=== PATIENT | female | born 1970 | race Caucasian/White ===

== ENCOUNTER 2016-05-06 10:45 | Inpatient (IN) ==
[2016-05-06] MEDS ORDERED: METOCLOPRAMIDE 10 MG/2 ML VIAL IV STA (12:09)
[2016-05-06] MEDS ORDERED: diphenhydrAMINE 50 MG/1 ML VIAL IV STA (12:10)
[2016-05-06] MEDS ORDERED: SODIUM CHLORIDE 0.9% 1,000 ML IV STA (12:11)
[2016-05-06] MEDS ORDERED: ASPIRIN CHEW 81 MG TABLET PO STA (12:11)
--- NOTE | 2016-05-06 12:14 | EKG Report ---
Stationary ECG Study [facility] ER Test Date: 05/06/2016 10:59:34 AM Pat Name: CARLITOS HANDLEY Department: Room: 422 Gender: F Chief Telephone Operator: Yuridia Ochoa : 1970 Requested by: Taz Ray Order Number: [id number] Reading MD: CONSTANCE LEWIS Intervals [place] Rate: 67 P: 77 WA: 168 QRS: 74 QRSD: 80 T: 83 QT: 396 QTc: 412 Interpretive Statements SINUS RHYTHM WITH SINUS ARRHYTHMIA Electronically Signed On 05-07-16 21:54:00 REFERRAL SPECIALIST by CONSTANCE LEWIS [email or web address]
[2016-05-06 12:34] LABS: Basophils % 0.7 % (0.0-0.8); Eosinophils # 0.1 10*3/uL (0.0-0.87); Eosinophils % 2.3 % (0.00-10.9); Hematocrit 42.4 VOL% (35.7-47.0); Hemoglobin 14.2 GM/DL (12.0-16.0); Immature Granulocytes % 0.2 %; Immature Granulocytes Absolute 0.01 #; Lymphocytes % 33.4 % (21.3-54.2); Mean Corpuscular HGB Conc 33.5 GM/DL (32-36); Mean Corpuscular Hemoglobin 32 PG (27-34); Mean Corpuscular Volume 94.4 FL (87-102); Mean Platelet Volume 9.6 FL (9.6-12.0); Monocytes # 0.3 10*3/uL (0.11-0.8); Monocytes % 5.6 % (1.7-12.7); Neutrophils # 3.5 10*3/uL (1.4-7.4); Neutrophils % 57.8 % (38.7-73.9); Platelet Count 218 10*3/uL (130-400); Red Blood Count 4.49 10*6/uL (3.8-5.5); Red Cell Distribution Width 13.1 % (9.3-17.3)
[2016-05-06] MEDS ORDERED: METOCLOPRAMIDE 10 MG/2 ML VIAL ONE (12:36)
[2016-05-06] MEDS ORDERED: diphenhydrAMINE 50 MG/1 ML VIAL ONE (12:36)
[2016-05-06] MEDS ORDERED: ASPIRIN 325 MG TABLET ONE (12:36)
--- NOTE | 2016-05-06 12:40 | CT Report ---
History severe headache The ventricles are normal in size The cerebellar tonsils are at the foramen magnum. There are multiple areas of the subcortical and a mildly cortical low-density including in the cerebellum and both cerebral hemispheres. No definite hemorrhage or significant mass effect is seen. Some very minimal relative hyperdensity in the left frontal region is likely relative to the adjacent edema and the cortex. No midline shift present. Impression: 1. multiple bilateral areas of cortical and subcortical edema. Pre-and postcontrast MRI necessary to exclude underlying enhancing lesions such as from neoplasm or infectious process. Multiple areas of ischemia felt to be less likely consideration. 2. Cerebellar tonsillar ectopia PROCEDURE INTERPRETED AT [facility] DEPARTMENT OF RADIOLOGY Final Report Signed by: Dr. Mile Guillen
--- NOTE | 2016-05-06 12:46 | XRay Report ---
History is chest pain Comparison 01/10/2015 Heart normal in size Mediport catheter present. Lung markings unchanged. No new areas of confluent infiltrate or pneumothorax seen Impression: No interval change PROCEDURE INTERPRETED AT [facility] DEPARTMENT OF RADIOLOGY Final Report Signed by: Dr. Mile Guillen
[2016-05-06 12:47] LABS: D-Dimer <= 0.5 MG/L FEU; Partial Thromboplastin Time 26.9 SECS (0-40)
[2016-05-06 13:00] LABS: Albumin 3.8 G/DL (3.4-5.0); Bilirubin,Total 0.5 MG/DL (0.2-1.0); Calcium 8.8 MG/DL (8.5-10.1)
[2016-05-06 13:01] LABS: Osmolality,Calculated 288.6 MOS/KG (273-304); Potassium 4.2 MMOL/L (3.5-5.1)
[2016-05-06] MEDS ORDERED: DEXAMETHASONE INJ 10 MG in SODIUM CHLORIDE 0.9% 50 ML IV ONE (15:51)
[2016-05-06] MEDS ORDERED: ONDANSETRON 4 MG/2 ML VIAL IV PRN (17:20)
[2016-05-06] MEDS ORDERED: LACTULOSE 20 GM/30 ML UDCUP PO PRN (17:20)
[2016-05-06] MEDS ORDERED: guaiFENesin 200 MG/10 ML UDCUP PO PRN (17:20)
[2016-05-06] MEDS ORDERED: MYLANTA/LIDO VISC 2:1 300 ML BOTTLE SWISH/SPIT PRN (17:20)
[2016-05-06] MEDS ORDERED: MORPHINE 2 MG/1 ML SYRINGE IV PRN (17:20)
[2016-05-06] MEDS ORDERED: diphenhydrAMINE CAP 25 MG CAPSULE PO PRN (17:20)
[2016-05-06] MEDS ORDERED: MAGNESIUM HYDROXIDE SUSP 30 ML UDCUP PO PRN (17:20)
[2016-05-06] MEDS ORDERED: ALPRAZolam 0.25 MG TABLET PO PRN (17:20)
[2016-05-06] MEDS ORDERED: MYLANTA/LIDO VISC 2:1 300 ML BOTTLE SWISH/SWAL PRN (17:20)
[2016-05-06] MEDS ORDERED: TEMAZEPAM 7.5 MG CAPSULE PO PRN (17:20)
[2016-05-06] MEDS ORDERED: LOPERAMIDE 2 MG CAPSULE PO PRN ×2 (17:20)
[2016-05-06] MEDS: DEXAMETHASONE 4 MG TABLET PO SCH ×2 (18:08→23:29)
[2016-05-06] MEDS: ACETAMINOPHEN 325 MG TABLET PO PRN ×2 (18:13→23:59)
[2016-05-07] MEDS: DEXAMETHASONE 4 MG TABLET PO SCH ×4 (05:57→21:26)
[2016-05-07] MEDS ORDERED: ZALEPLON 5 MG CAPSULE PO PRN (09:06)
[2016-05-07] MEDS ORDERED: ALPRAZolam 0.5 MG TABLET PO PRN (09:06)
[2016-05-07] MEDS ORDERED: PROMETHAZINE 25 MG TABLET PO PRN (09:06)
--- NOTE | 2016-05-07 09:13 | Oncology History&Physical ---
Assessment and Plan (1) Brain metastases Status: Acute Assessment and plan: MRI brain today. Continue with Decadron. We will likely initiate radiation on Monday. Current Visit: Yes (2) Breast cancer Status: Acute Current Visit: No (3) Severe headache Status: Acute Current Visit: Yes History of Present Illness History of present illness: Ms. Duran is a 45 year old female with a history of metastatic HER-2 positive breast cancer who is been on doublet HER-2 blockade for over a year now with a very good response to treatment and no definitive evidence of disease. She presented to the emergency room yesterday complaining of severe headache much different than her previous history of migraines. She describes a headache as more of a pressure particularly when she leans forward. CT head in the ER yesterday showed diffuse areas of edema in both cerebral hemispheres and the cerebellum. She was admitted for steroids and further evaluation with MRI. She most likely has new brain metastases. On exam today she has no new complaints other the headaches. She seems remaining good spirits even with her new issue. We briefly discussed my plan for this weekend which included MRI on steroids. I deferred future treatment plans to her primary oncologist, Dr. Meyer , when he returns on Monday. Home Medications Medication Instructions Recorded Confirmed Type ALPRAZolam [Xanax] 1 - 2 tablet PO BEDTIME PRN 12/19/14 05/06/16 History Duloxetine HCl [Cymbalta] 60 mg PO BEDTIME 12/19/14 05/06/16 History Promethazine Tab [Phenergan Tab] 25 mg PO Q4H PRN 12/19/14 05/06/16 History Zolpidem Tartrate 10 mg PO BEDTIME PRN 05/06/16 05/06/16 History Allergies Allergy/AdvReac Type Severity Reaction Status Date / Time No Known Allergies Allergy Verified 05/06/16 10:56 Medical,Surgical,& Family Hx - Medical History Neurology: History of: Migraine Genitourinary: History of: Kidney Stones Hematology: No history of: Blood Transfusion Reaction Reproductive: History of: Breast Cancer (left) Other: History of: Cancer - Surgical History Thoracic Surgeries: Surgical HX of;: Lithotripsy (1999) Patient denies;: Organ Transplant, Lobectomy Neurologic Surgeries: Patient denies: Neurologic Surgery Abdominal Surgeries: Patient denies: Abdominal Surgery Reproductive Surgeries: Surgical HX of;: Section (1994, 2008) - Family History Family History: Reports;: Family Hypertension (father) - Social History Smoking Status: Former smoker Frequency of Alcohol Use: None Type of Drug Use: None 12 point system: reviewed and no additional remarkable complaints except as stated - Constitutional Constitutional: Absent: fatigue, weight loss - EENT Nose, mouth and throat: Absent: dizziness - Cardiovascular Cardiovascular ROS IM: Absent: chest pain - Neurological Neurological ROS: as per HPI, headache(s) - Psychiatric Psychiatric General: Present: anxiety Exam - Constitutional Vitals: Period Temp Pulse Resp BP Sys/Frausto Pulse Ox Last 24 Hr 96.5 F-97.6 F 63-79 16-20 129-138/60-83 95-98 General appearance: normal weight, no acute distress - Head Head Exam: Present: normocephalic, atraumatic - Eye Eye Exam: Present: EOMI Pupils: Present: PERRL - ENT ENT exam: Present: normal exam, normal oropharynx - Neck Neck exam: Absent: lymphadenopathy, thyromegaly - Respiratory Respiratory exam: Present: CTAB. Absent: wheezes - Cardiovascular Cardiovascular exam: Present: RRR. Absent: JVD, systolic murmur - GI/Abdominal GI/Abdominal exam: Present: soft. Absent: ascites, distended, firm, mass - Neurological Exam Neurological exam: Present: alert, oriented X3, normal gait, CN II-XII intact. Absent: altered, motor sensory deficit - Psychiatric Psychiatric exam: Present: normal affect, normal mood - Skin Skin exam: Present: warm, dry Results - Labs CBC & BMP: 05/06/16 12:24 05/06/16 12:24 Lab Results: I have reviewed the past 24 hour labs - Diagnostic Findings Procedure: CT: image reviewed by me, report reviewed by me, MRI: pending Quality Measures - Stroke Symptom Onset Unknown: No
[2016-05-07] MEDS ORDERED: DULoxetine 30 MG CAPSULE PO ONE (10:29)
--- NOTE | 2016-05-07 12:05 | Magnetic Resonance Report ---
MR head/brain w and wo con Indication: Breast cancer. New brain metastases. Edema. MRI BRAIN WITH AND WITHOUT CONTRAST Technique: Multiplanar MR images of the brain were obtained before and after the IV administration of Dotarem 17 cc.. Comparison: CT brain obtained yesterday Findings: Number shifted diffusion. There are numerous metastatic lesions distributed throughout the brain, somewhat more concentrated in the cerebellar hemispheres and posterior circulation of the occipital regions. The largest lesions within the posterior left cerebellar hemisphere measuring 18 x 13 mm in size. Additional scattered lesions involve the subcortical white matter of the left frontal and parietal lobes, right parietal region, both temporal lobes, and all have some degree of associated brain edema adjacent to them. At this time, there is no midline shift present, and there is no obstructive hydrocephalus shown. However, several cerebellar and a small right pontine lesion are present, which have mild local mass effect. The patency of the fourth ventricle is at risk. No abnormal blood products are shown. No midline shift is evident. Sinuses are clear. Orbits are symmetric. Internal auditory canals are within normal limits. Impression: Innumerable and widespread metastatic disease, largest lesion posterior left cerebral hemisphere 18 x 13 mm in size. No midline shift, and no obstructive hydrocephalus at this time but the fourth ventricle is thought to be at risk due to adjacent metastatic lesions with mild associated edema. PROCEDURE INTERPRETED AT [facility] DEPARTMENT OF RADIOLOGY Final Report Signed by: Fredy Carlisle M.D.
[2016-05-07] MEDS: DULoxetine 30 MG CAPSULE PO SCH (21:25)
[2016-05-07] MEDS: ALPRAZolam 0.5 MG TABLET PO PRN (21:25)
[2016-05-08] MEDS: ALUMINUM/MAGNES/SIMETH MAX STR 30 ML UDCUP PO PRN ×3 (05:20→21:20)
[2016-05-08] MEDS: ACETAMINOPHEN 325 MG TABLET PO PRN (08:25)
[2016-05-08] MEDS: DEXAMETHASONE 4 MG TABLET PO SCH ×4 (08:27→21:20)
--- NOTE | 2016-05-08 09:21 | Oncology Progress Note ---
Assessment and Plan (1) Breast cancer Status: Acute Current Visit: No (2) Severe headache Status: Acute Current Visit: Yes (3) Brain metastases Status: Acute Current Visit: Yes Oncology Subjective PN Interval history: Ms. Duran is a 45-year-old white female with newly diagnosed brain metastases from her previously known HER-2 positive breast cancer. MRI done yesterday confirmed numerous intracranial tumors that were more proportionately located in her cerebellum and occipital lobes. She states today her headache is much improved now that she's been on steroids for over 24 hours. Her family was present today we had a lengthy conversation about radiotherapy for these tumors. I told her that it is up to Dr. Meyer if he will want to change her systemic therapy but he'll most likely want to at least do a repeat staging CT scan or PET scan before he makes a decision such as that. I did show the MRI to her and her family on the computer screen. I explained to her that she is well enough to actually go home if she wanted to but she would like to remain in the hospital for one more day to talk to Dr. Meyer tomorrow and a go ahead and see radiation oncology. We will continue Decadron while she is here. I encourage her to ambulate up and down the gayle and to try to sit in the chair for most of the day. Exam - Constitutional Vitals: Period Temp Pulse Resp BP Sys/Frausto Pulse Ox Last 24 Hr 97 F-98.7 F 67-87 16-20 124-148/58-82 93-99 General appearance: normal weight, no acute distress - Head Head Exam: Present: normocephalic, atraumatic - Eye Eye Exam: Present: EOMI Pupils: Present: PERRL - ENT ENT exam: Present: normal exam, normal oropharynx - Neck Neck exam: Absent: lymphadenopathy, thyromegaly - Respiratory Respiratory exam: Present: CTAB. Absent: wheezes - Cardiovascular Cardiovascular exam: Present: RRR. Absent: irregular rhythm - Neurological Exam Neurological exam: Present: alert, oriented X3 - Psychiatric Psychiatric exam: Present: normal affect, normal mood Results - Labs CBC & BMP: 05/06/16 12:24 05/06/16 12:24 Lab Results: I have reviewed the past 24 hour labs - Diagnostic Findings Procedure: MRI: report reviewed by me, image reviewed by me Quality Measures - Stroke Symptom Onset Unknown: No
[2016-05-08] MEDS: DULoxetine 30 MG CAPSULE PO SCH (21:20)
[2016-05-08] MEDS: ALPRAZolam 0.5 MG TABLET PO PRN (21:20)
[2016-05-09] MEDS: ALUMINUM/MAGNES/SIMETH MAX STR 30 ML UDCUP PO PRN (04:43)
[2016-05-09] MEDS ORDERED: INFLUENZA VIRUS VACCINE 0.5 ML SYRINGE IM ONE (08:03)
[2016-05-09] MEDS: DEXAMETHASONE 4 MG TABLET PO SCH (08:48)
--- NOTE | 2016-05-09 09:28 | Discharge Summary ---
Hospital Course - Hospital Course Hospital Course: Patient with stage IV HER-2 positive breast cancer with previous treatment of pulmonary metastasis who is responded well. She presented with abrupt headache. Her MRI shows multiple lesions with some degree of edema present. She is scheduled to see radiotherapy today in initial consultation. She is on oral steroids and is a focal from a neurologic standpoint. She has mild elevation in her mood and affect but has no motor dysfunction at this time. Her cognitive function is unremarkable. Case was reviewed at bedside with the patient, her father, and her sister. I have recommended no driving for this week. She will take the week off from work. She is scheduled to see me back in approximately [address] of the chest and discussion for continued Herceptin. She had a treatment. She will resume her home medications of Cymbalta and Xanax as needed. Prescription is supplied for Decadron 4 mg p.o. 3 times daily #90 with 2 refills Discharge Plan - Discharge Medications New ALPRAZolam [Xanax] 1 mg PO BEDTIME PRN #0 tablet PRN Reason: Anxiety Dexamethasone Tab [Decadron Tab] 4 mg PO TID #90 tablet Continue ALPRAZolam [Xanax] 1 - 2 tablet PO BEDTIME PRN PRN Reason: Anxiety Promethazine Tab [Phenergan Tab] 25 mg PO Q4H PRN PRN Reason: Nausea Duloxetine HCl [Cymbalta] 60 mg PO BEDTIME Zolpidem Tartrate 10 mg PO BEDTIME PRN PRN Reason: Insomnia - Follow Up or Referral - Forms/Instructions Exam - Constitutional Vitals: Period Temp Pulse Resp BP Sys/Frausto Pulse Ox Last 24 Hr 96.9 F-97.7 F 70-82 16-22 115-140/58-74 95-97 DS: Provider Date of admission: 05/06/16 15:52 Primary care physician: . No PCP Attending physician on admission: Fredy Meyer MD Consults: 05/06/16 17:26 Consult to Pharmacy [CONS] Routine Reason for Pharmacy Consult: Adjust Meds Renal Funct 05/06/16 17:41 Consult to Pastoral Services [CONS] Routine Comment: Pastoral Screen: Request Multigrapher Visit Pastoral Screen Source of Request: Patient 05/08/16 09:32 Consult to Physician [CONS] Routine Comment: Consulting Provider: Wilfrid Ford Consulting Provider Notified: Yes When should Consulting Provider be notified: Now Consult to Specialist Group: Radiation Oncology When should Consulting Provider be notified: Now Person Notified: TIFFANI Date Notified: 05/09/16 Time Notified: 08:46 Discharging clinician: Fredy Meyer MD
[2016-05-09 12:32] VITALS: BP 121/57
--- NOTE | 2016-05-12 13:24 | Physician Query Form ---
CLICK EDIT DOCUMENT TO SELECT QUERY ANSWER --> OK --> SIGN Delphine Story RN Clinical Bookmaker'S Clerk W) [phone] (f) [phone] [email or web address] PROVIDERS: Make your selection(s) from the choices in EACH section by typing an "x" and enter comments in the comment section. Please use your independent medical judgment in providing your response. This request does not imply that any particular answer is desired or expected. CLINICAL INDICATORS: (Providers should not edit this section) Based on documentation of "stage IV HER-2 positive breast cancer with previous treatment of pulmonary metastasis who is responded well." Based on the above, could you clarify the appropriate diagnosis, if significant , that supports the above abnormalities and additional evaluation, monitoring, and/or treatment rendered: (x ) Being Treated for Pulmonary Metastasis ( ) NOT Being Treated for Pulmonary Metastasis ( ) Other, please specify: ( ) Clinically unable to determine COMMENTS: Use of terms such as suspected, likely, or probable (associated with a specific diagnosis that is being evaluated, monitored, or treated as if it exists) are acceptable and can be restated in the discharge summary if not ruled out. MTDD
--- NOTE | 2016-05-17 09:55 | Emergency Department Note ---
Logan Nunes Brittany, am scribing for, and in the presence of, Taz Ray Jr., MD 12:12. Flor Nunes Marvin Jr., MD, personally performed the services described in this documentation, ascribed by Danni Ford in my presence, and it is both accurate and complete [id number] . Arrival - Arrival Chief Complaint: Chest Pain Stated Complaint: migraine,chest pain ED Nursing Triage Note: C/O TAKING CHEMO LAST EVENING FOR BREAST CANCER, STATES WOKE UP THIS AM WITH HEADACHE, + NAUSEA., DENIES HAVING DIARRHEA., ALSO C/O HAVING CHEST PAIN , STATES HAVING PRESSURE/ TIGHTNESS.,STATES THE PAIN IS RADIATING TO THE BACK ,EKG OBTAINED AT TIME OF TRIAGE Mode of Arrival: Ambulatory Limitations: No Limitations Source: Patient, RN Notes Reviewed - History of Present Illness HPI Narrative: Patient is a 45 y/o white female presenting to the ED with c/o chest pain with an onset of last night. Patient describes chest pain as a mild pressure radiating into her back, worse with deep breaths and rates pain a 4/10. Patient believes current chest pain to most likely be a muscular pain, and states "everything just scares me now." Patient reports that she has also been having a migraine headache for about a week now. Patient states that she has a history of migraines and usually wakes up with them, but this morning at around 0200 she awakened out of her sleep by a migraine which she deems unusual for her. Patient states that this migraine is worse than her normal migraines. She reports that upon vomiting migraines are usually relieved, but states that after vomiting with current migraine, pain persisted. Patient notes that migraine is worsened with any movement, especially movement of the eyes. Patient reports that she has Breast CA, noting last chemotherapy treatment was yesterday. Patient notes that she currently takes Symbalta everyday. Patient denies use of tobacco, alcohol, or recreational drugs. Patient has no other complaint/pain in the ED. Allergies/Adverse Reactions: Allergies Allergy/AdvReac Type Severity Reaction Status Date / Time No Known Allergies Allergy Verified 05/06/16 10:56 Home Medications: Home Medications Medication Instructions Recorded Confirmed Type ALPRAZolam [Xanax] 1 - 2 tablet PO BEDTIME PRN 12/19/14 05/06/16 History Duloxetine HCl [Cymbalta] 60 mg PO BEDTIME 12/19/14 05/06/16 History Promethazine Tab [Phenergan Tab] 25 mg PO Q4H PRN 12/19/14 05/06/16 History Zolpidem Tartrate 10 mg PO BEDTIME PRN 05/06/16 05/06/16 History Review of System - Review of System 12 point system: reviewed and no additional remarkable complaints except as stated - Review of System Cardiovascular: Present: chest pain Gastrointestinal: Present: nausea, vomiting Neurological: Present: headache Medical,Surgical,& Family Hx - Medical History Genitourinary: History of: Kidney Stones Hematology: No history of: Blood Transfusion Reaction Reproductive: History of: Breast Cancer (left) Other: History of: Cancer - Surgical History Thoracic Surgeries: Surgical HX of;: Lithotripsy (1999) Patient denies;: Organ Transplant, Lobectomy Neurologic Surgeries: Patient denies: Neurologic Surgery Abdominal Surgeries: Patient denies: Abdominal Surgery Reproductive Surgeries: Surgical HX of;: Section (1994, 2008) - Family History Family History: Reports;: Family Hypertension (father) - Social History Smoking Status: Light tobacco smoker Frequency of Alcohol Use: None Type of Drug Use: None Exam Physical Examination: General: Well-developed well-nourished, no apparent distress. Head: Normocephalic, atraumatic. Eyes: PERRLA, EOMI. Nose: No obvious acute deformities or discharge. Mouth: No obvious acute injury. Neck: Full range of motion without obvious pain. No midline tender to palpation. Lymphatic: no significant lymphadenopathy noted. Lungs: Clear to auscultation bilaterally, normal and equal air movement bilaterally, no obvious rales or wheezing. Chest wall: Left upper chest wall palpation reproduces her pain Heart: regular rate and rhythm, no obvious mummers. Abdomen: Soft nontender, nondistended, normal active bowel sounds. Skin: No obivous acute lesions noted Musculoskeletal: No gross deformities. Neurological: No focal findings, cranial nerves II through XII grossly normal. Psychiatric: Anxious : Deferred Vital Signs: Vital Signs Temperature 98.2 F 05/06/16 11:15 Pulse Rate 73 05/06/16 11:15 Respiratory Rate 16 05/06/16 11:15 Blood Pressure 166/66 05/06/16 11:15 O2 Sat by Pulse Oximetry 100 05/06/16 11:15 Course Course Narrative: Differential diagnoses for chest pain: Anxiety, chest wall pain, ACS, PE, differential diagnosis for headache includes severe migraine, intracranial hemorrhage, - Reevaluation(s) Reevaluation #1: I discussed with Dr. Martínez. I read him the CT report and he said to admit this patient and give her 10 mg of dexamethasone IV. Then 4 mg of dexamethasone p.o. every 6 hours he will follow-up on her and order other appropriate testing. Time: 15:49 Results - Labs CBC & BMP: 05/06/16 12:24 05/06/16 12:24 Lab Results: I have reviewed the patients labs Labs: Laboratory Tests 05/06/16 12:24 WBC 6.0 RBC 4.49 Hgb 14.2 Hct 42.4 MCV 94.4 MCH 32 MCHC 33.5 RDW 13.1 Plt Count 218 MPV 9.6 Neut % (Auto) 57.8 Lymph % (Auto) 33.4 [place] % (Auto) 5.6 Eos % (Auto) 2.3 Baso % (Auto) 0.7 Neut # (Auto) 3.5 Lymph # (Auto) 2.0 [place] # (Auto) 0.3 Eos # (Auto) 0.1 Baso # (Auto) 0.0 Immature Gran % 0.2 Nucleated RBC % 0.0 Immature Gran # 0.01 Nucleated RBCs # 0.00 Laboratory Tests 05/06/16 12:24 INR 1.0 PT Patient/Control Mix 10.0 D-Dimer, Quantitative <= 0.5 Circ Anticoag PTT 26.9 Laboratory Tests 05/06/16 12:24 Sodium 146 H Potassium 4.2 Chloride 111 H Carbon Dioxide 26 Anion Gap 13.2 BUN 10 Creatinine 0.90 GFR Calculation 86 BUN/Creatinine Ratio 11.00 Glucose 103 Calculated Osmolality 288.6 Calcium 8.8 Total Bilirubin 0.50 AST 16 ALT 20 Alkaline Phosphatase 138 H Total Protein 7.0 Albumin 3.8 Globulin 3.2 Albumin/Globulin Ratio 1.1 Laboratory Tests 05/06/16 12:24 Troponin I < 0.015 - Diagnostic Findings Procedure: Chest x-ray: report reviewed by me, image reviewed by me (No interval change. I personally reviewed this chest x-ray and the CT), CT: report reviewed by me, image reviewed by me (head/brain wo contrast: 1. Multiple bilateral areas of cortical and subcortical edema. Pre-and post contrast MRI necessary to exclude underlying enhancing lesions such as from neoplasm or infectious process. Multiple areas of ischemia felt to be less likely consideration; 2. Cerebellar tonsillar ectopia.) Disposition Clinical Impression: Severe headache, Probable brain metastasis, Increase alkaline phosphatase Case discussed with: patient, patient's family Disposition: Still a Patient Condition: Stable Time of Disposition: 15:51
== END 2016-05-09 12:29 | disposition home or self-care (01) | DRG 54 ==
LOC: N.ED 10:45 → N.EDINP 15:52 → N.4E 16:52
PROVIDERS: ADMIT Specialist; ATTEND Specialist

== ENCOUNTER 2016-05-26 11:22 | Inpatient (IN) ==
[2016-05-26] MEDS ORDERED: SODIUM CHLORIDE 0.9% 1,000 ML IV SCH (13:00)
[2016-05-26] MEDS ORDERED: PROMETHAZINE INJ 25 MG in SODIUM CHLORIDE 0.9% 50 ML IV PRN ×2 (13:00→14:24)
[2016-05-26] MEDS ORDERED: MORPHINE 2 MG/1 ML SYRINGE IV PRN (13:00)
[2016-05-26] MEDS ORDERED: chlorproMAZINE INJ 25 MG in SODIUM CHLORIDE 0.9% 100 ML IV PRN (14:24)
[2016-05-26] MEDS ORDERED: chlorproMAZINE 25 MG TABLET PO PRN (14:24)
[2016-05-26] MEDS ORDERED: LACTULOSE 20 GM/30 ML UDCUP PO PRN (14:24)
[2016-05-26] MEDS ORDERED: TEMAZEPAM 7.5 MG CAPSULE PO PRN (14:24)
[2016-05-26] MEDS ORDERED: guaiFENesin 200 MG/10 ML UDCUP PO PRN (14:24)
[2016-05-26] MEDS ORDERED: traMADol 50 MG TABLET PO PRN (14:24)
[2016-05-26] MEDS ORDERED: MYLANTA/LIDO VISC 2:1 300 ML BOTTLE SWISH/SPIT PRN (14:24)
[2016-05-26] MEDS ORDERED: ALUMINUM/MAGNES/SIMETH MAX STR 30 ML UDCUP PO PRN (14:24)
[2016-05-26] MEDS ORDERED: chlorproMAZINE INJ 50 MG in SODIUM CHLORIDE 0.9% 100 ML IV PRN (14:24)
[2016-05-26] MEDS ORDERED: BENZTROPINE 2 MG/2 ML AMP IV PRN (14:24)
[2016-05-26] MEDS ORDERED: MYLANTA/LIDO VISC 2:1 300 ML BOTTLE SWISH/SWAL PRN (14:24)
[2016-05-26] MEDS ORDERED: ACETAMINOPHEN 325 MG TABLET PO PRN (14:24)
[2016-05-26] MEDS ORDERED: ONDANSETRON 4 MG/2 ML VIAL IV PRN (14:24)
[2016-05-26] MEDS ORDERED: MAGNESIUM HYDROXIDE SUSP 30 ML UDCUP PO PRN (14:24)
[2016-05-26] MEDS ORDERED: diphenhydrAMINE CAP 25 MG CAPSULE PO PRN (14:24)
[2016-05-26] MEDS ORDERED: LOPERAMIDE 2 MG CAPSULE PO PRN ×2 (14:24)
[2016-05-26] MEDS ORDERED: ALPRAZolam 0.25 MG TABLET PO PRN (14:24)
[2016-05-26 14:31] LABS: Apearance,Urine Slightly Hazy (Clear); Bilirubin,Urine Negative (Negative); Blood, Urine Moderate mg/dL (Negative); Glucose,Urine (UA) Negative (Negative); Ketones,Urine Negative (Negative); Mucus,Urine Occasional /LPF (Occasional); Nitrite,Urine Negative (Negative); Protein,Urine 30 MG/DL; RBC,Urine 4 /HPF (0-4); Squamous Epithelial Cell,Urine Occasional /HPF (0-10); Urine Color Yellow (Yellow); Urine Specific Gravity 1.023 (1.001-1.035); Urine Urobilinogen < 2.0 EU/DL (0.2-1.0); WBC,Urine 4 /HPF (0-6)
[2016-05-26] MEDS: FLUCONAZOLE 200 MG TABLET PO SCH (14:40)
[2016-05-26] MEDS: DEXAMETHASONE 10 MG/1 ML VIAL IV SCH (14:40)
[2016-05-26] MEDS: cefTRIAXone 1,000 MG in SODIUM CHLORIDE 0.9% 100 ML IV SCH (14:41)
--- NOTE | 2016-05-26 14:51 | XRay Report ---
Portable chest Date: 05/26/2016 Clinical history: Breast cancer, febrile neutropenia Comparison: 05/06/2016 Technique: Portable AP sitting chest Findings: The heart is normal in size with stable right subclavian venous access catheter. The lungs are overexpanded with chronic scarring. Very minimal atelectasis at the left lung base. Postoperative findings in the left axilla. Stable mediastinum and osseous structures. Impression: The lungs are more overexpanded with very minimal atelectasis at the left lung base. Underlying chronic scarring with no significant infiltration noted. PROCEDURE INTERPRETED AT [facility] DEPARTMENT OF RADIOLOGY Final Report Signed by: Dr. Karen Riley
[2016-05-26] MEDS: SODIUM CHLORIDE 0.9% 1,000 ML IV SCH (18:34)
[2016-05-26] MEDS ORDERED: PROMETHAZINE 25 MG TABLET PO PRN (19:11)
[2016-05-26] MEDS ORDERED: ALPRAZolam 0.5 MG TABLET PO PRN (19:12)
[2016-05-26] MEDS: ALPRAZolam 0.5 MG TABLET PO SCH (20:44)
[2016-05-27] MEDS: DEXAMETHASONE 10 MG/1 ML VIAL IV SCH ×2 (00:41→14:15)
[2016-05-27] MEDS: SODIUM CHLORIDE 0.9% 1,000 ML IV SCH (06:31)
[2016-05-27] MEDS: FLUCONAZOLE 200 MG TABLET PO SCH (08:13)
[2016-05-27] MEDS: ALPRAZolam 0.5 MG TABLET PO SCH (08:14)
[2016-05-27] MEDS ORDERED: DULoxetine 30 MG CAPSULE PO SCH (09:00)
--- NOTE | 2016-05-27 09:46 | Oncology History&Physical ---
Assessment and Plan (1) Breast cancer Status: Acute Assessment and plan: Continue antibiotics today and follow-up blood cultures. Continue IV steroids. Continue with whole brain radiation. If she remains afebrile during today and continues to tolerate oral intake then we would plan for discharge home of the weekend with oncology follow-up on Monday Current Visit: No History of Present Illness Chief complaint: Nausea vomiting History of present illness: Ms. Duran is a 46 year old female With multiple brain metastasis diagnosed 2-3 weeks ago with ongoing treatment for stage IV HER-2 positive breast cancer. The patient continues to have good systemic control of her disease outside of the brain metastasis with extended dosing of Herceptin and Tradjenta. She was felt to have pulmonary metastasis at the time of original presentation. She was seen in the office yesterday with 24 hours of nausea vomiting. She was unable to tolerate solid or liquid intake. She was having difficulty maintaining her steroid intake during this time as well. She did receive whole brain radiotherapy yesterday as well as plans for today. The patient also had fever up to 101 yesterday with body aches. Her flu test is negative. Her urinalysis is unremarkable. Blood cultures are pending and she was started empirically on Rocephin. She does not have any signs of meningismus. Home Medications Medication Instructions Recorded Confirmed Type ALPRAZolam [Xanax] 1 - 2 tablet PO TID 12/19/14 05/26/16 History Duloxetine HCl [Cymbalta] 60 mg PO BEDTIME 12/19/14 05/26/16 History Promethazine Tab [Phenergan Tab] 25 mg PO Q4H PRN 12/19/14 05/26/16 History Zolpidem Tartrate 10 mg PO BEDTIME PRN 05/06/16 05/26/16 History ALPRAZolam [Xanax] 1 mg PO BEDTIME PRN #0 tablet 05/09/16 05/26/16 Rx Dexamethasone Tab [Decadron Tab] 4 mg PO TID #90 tablet 05/09/16 05/26/16 Rx Allergies Allergy/AdvReac Type Severity Reaction Status Date / Time No Known Allergies Allergy Verified 05/06/16 10:56 Medical,Surgical,& Family Hx - Medical History Neurology: History of: Migraine Genitourinary: History of: Kidney Stones Hematology: No history of: Blood Transfusion Reaction Reproductive: History of: Breast Cancer (left) Other: History of: Cancer - Surgical History Thoracic Surgeries: Surgical HX of;: Lithotripsy (1999) Patient denies;: Organ Transplant, Lobectomy Neurologic Surgeries: Patient denies: Neurologic Surgery Abdominal Surgeries: Patient denies: Abdominal Surgery Reproductive Surgeries: Surgical HX of;: Section (1994, 2008) - Family History Family History: Reports;: Family Hypertension (father) - Social History Smoking Status: Former smoker Frequency of Alcohol Use: None Type of Drug Use: None - Constitutional Constitutional: Present: fatigue, fever(s), malaise - EENT Eye: Absent: diplopia, loss of vision Ears: Absent: ear discharge, ear pain Nose, mouth and throat: Absent: neck mass, neck pain, odynophagia, sore throat - Cardiovascular Cardiovascular ROS IM: Absent: edema, orthopnea - Respiratory Respiratory: Absent: dyspnea, hemoptysis Exam - Constitutional Vitals: Period Temp Pulse Resp BP Sys/Frausto Pulse Ox Last 24 Hr 96.2 F-99.8 F 65-75 18-20 109-132/56-77 97-99 General appearance: normal weight - Head Head Exam: Present: normocephalic, atraumatic - Eye Eye Exam: Present: EOMI, conjunctival injection (Mild). Absent: periorbital swelling, scleral icterus - ENT ENT exam: Present: normal external ear exam - Neck Neck exam: Present: normal inspection. Absent: lymphadenopathy - Respiratory Respiratory exam: Present: CTAB. Absent: accessory muscle use, chest wall tenderness - Cardiovascular Cardiovascular exam: Present: RRR. Absent: irregular rhythm - GI/Abdominal GI/Abdominal exam: Absent: ascites, distended, firm - Neurological Exam Neurological exam: Present: alert, oriented X3, CN II-XII intact. Absent: altered, motor sensory deficit - Psychiatric Psychiatric exam: Absent: anxious, depressed
[2016-05-27 12:25] VITALS: BP 112/57
[2016-05-27] MEDS: cefTRIAXone 1,000 MG in SODIUM CHLORIDE 0.9% 100 ML IV SCH (14:15)
[2016-05-27] MEDS ORDERED: HEPARIN LOCK FLUSH 500 UNIT/5 ML SYRINGE IV ONE (15:04)
--- NOTE | 2016-05-30 08:34 | Discharge Summary ---
Hospital Course - Hospital Course Hospital Course: Patient with HER-2 positive breast cancer admitted with brain metastasis and nausea vomiting. The patient responded well to 24 hours of IV steroids and IV hydration. She was moving all extremities and was scheduled to continue with radiotherapy. Labs were reviewed and case was discussed with patient and her father. Stable for discharge home as she is now tolerating oral intake and solid food. Follow-up is arranged for 72 hours post discharge on May 30 Diagnosis - Discharge Diagnosis (1) Breast cancer Status: Acute Specialty Discharge - Follow Up or Referrals Follow up with: Fredy Meyer MD [Physician] - (Dr. Meyer will see you Monday.) Discharge Plan - Discharge Data Disposition: Disch To Home/Self Care - Discharge Medications No Action ALPRAZolam [Xanax] 1 - 2 tablet PO TID Promethazine Tab [Phenergan Tab] 25 mg PO Q4H PRN PRN Reason: Nausea Duloxetine HCl [Cymbalta] 60 mg PO BEDTIME ALPRAZolam [Xanax] 1 mg PO BEDTIME PRN #0 tablet PRN Reason: Anxiety Dexamethasone Tab [Decadron Tab] 4 mg PO TID #90 tablet Ciprofloxacin Tab [Cipro Tab] 500 mg PO BID Zolpidem Tartrate 10 mg PO BEDTIME PRN PRN Reason: Insomnia - Follow Up or Referral Follow Up: Fredy Meyer MD [Physician] - (Dr. Meyer will see you Monday.) - Forms/Instructions Discharge Results Procedures and tests throughout hospitalization: Pending Orders 05/26/16 14:19 Blood Culture Stat Blood Culture Stat Labs on day of discharge: Preliminary micro results at discharge 05/26/16 14:19 Blood Culture - Preliminary Blood No growth at 3 days 05/26/16 14:19 Blood Culture - Preliminary Blood No growth at 3 days DS: Provider Date of admission: 05/26/16 11:30 Primary care physician: . No PCP Attending physician on admission: Fredy Meyer MD Consults: 05/26/16 17:07 Consult to Pharmacy [CONS] Routine Reason for Pharmacy Consult: Adjust Meds Renal Funct Discharging clinician: Fredy Meyer MD
== END 2016-05-27 15:25 | disposition home or self-care (01) | DRG 55 ==
LOC: N.ADMINP 11:30 → N.4E 11:38 → N.ADMINP 11:39 → N.4E 15:06
PROVIDERS: ADMIT Specialist; ATTEND Specialist

== ENCOUNTER 2016-07-21 12:01 | Inpatient (IN) ==
[2016-07-21] MEDS ORDERED: HEPARIN LOCK FLUSH 500 UNIT/5 ML SYRINGE IV ONE (13:12)
[2016-07-21] MEDS ORDERED: ALTEPLASE 10 MG in SODIUM CHLORIDE 0.9% 250 ML IV ONE (13:47)
[2016-07-21] MEDS ORDERED: ALTEPLASE 2 MG VIAL INTRACATH ONE (14:03)
[2016-07-21] MEDS ORDERED: HEPARIN LOCK FLUSH 500 UNIT/5 ML SYRINGE IV PRN (14:39)
[2016-07-21] MEDS: VANCOMYCIN INJ 1,250 MG in SODIUM CHLORIDE 0.9% 250 ML IV SCH (15:27)
[2016-07-21] MEDS ORDERED: PROMETHAZINE INJ 25 MG in SODIUM CHLORIDE 0.9% 50 ML IV PRN (15:44)
[2016-07-21] MEDS ORDERED: ALUMINUM/MAGNES/SIMETH MAX STR 30 ML UDCUP PO PRN (15:44)
[2016-07-21] MEDS ORDERED: MYLANTA/LIDO VISC 2:1 300 ML BOTTLE SWISH/SPIT PRN (15:44)
[2016-07-21] MEDS ORDERED: chlorproMAZINE 25 MG TABLET PO PRN (15:44)
[2016-07-21] MEDS ORDERED: diphenhydrAMINE CAP 25 MG CAPSULE PO PRN (15:44)
[2016-07-21] MEDS ORDERED: BENZTROPINE 2 MG/2 ML AMP IV PRN (15:44)
[2016-07-21] MEDS ORDERED: LACTULOSE 20 GM/30 ML UDCUP PO PRN (15:44)
[2016-07-21] MEDS ORDERED: ALPRAZolam 0.25 MG TABLET PO PRN (15:44)
[2016-07-21] MEDS ORDERED: LOPERAMIDE 2 MG CAPSULE PO PRN ×2 (15:44)
[2016-07-21] MEDS ORDERED: chlorproMAZINE INJ 50 MG in SODIUM CHLORIDE 0.9% 100 ML IV PRN (15:44)
[2016-07-21] MEDS ORDERED: MAGNESIUM HYDROXIDE SUSP 30 ML UDCUP PO PRN (15:44)
[2016-07-21] MEDS ORDERED: MYLANTA/LIDO VISC 2:1 300 ML BOTTLE SWISH/SWAL PRN (15:44)
[2016-07-21] MEDS ORDERED: ONDANSETRON 4 MG/2 ML VIAL IV PRN (15:44)
[2016-07-21] MEDS ORDERED: chlorproMAZINE INJ 25 MG in SODIUM CHLORIDE 0.9% 100 ML IV PRN (15:44)
[2016-07-21] MEDS ORDERED: traMADol 50 MG TABLET PO PRN (15:44)
[2016-07-21] MEDS ORDERED: SODIUM CHLORIDE 0.9% 500 ML IV SCH (17:00)
[2016-07-21] MEDS: PIPERACILLIN/TAZOBACTAM 3,375 MG in SODIUM CHLORIDE 0.9% 100 ML IV SCH (17:37)
[2016-07-21] MEDS: SODIUM CHLORIDE 0.9% 1,000 ML IV SCH (17:47)
[2016-07-21 17:48] LABS: Apearance,Urine CLEAR (Clear); Bilirubin,Urine Negative (Negative); Blood, Urine Negative (Negative); Glucose,Urine (UA) Negative (Negative); Ketones,Urine Negative (Negative); Mucus,Urine Occasional /LPF (Occasional); Nitrite,Urine Negative (Negative); Protein,Urine Negative; RBC,Urine 1 /HPF (0-4); Squamous Epithelial Cell,Urine Occasional /HPF (0-10); Urine Color Yellow (Yellow); Urine Specific Gravity 1.013 (1.001-1.035); Urine Urobilinogen < 2.0 EU/DL (0.2-1.0); WBC,Urine 1 /HPF (0-6)
--- NOTE | 2016-07-21 18:17 | History and Physical Report ---
DATE OF ADMISSION: 07/21/2016 CHIEF COMPLAINT: Fever. HISTORY: This is a 46-year-old female diagnosed with HER2-positive left-sided breast cancer around October 2014. The patient had suspicious pulmonary findings at that time for probable metastatic disease. She r esponded well to systemic treatment and did undergo left mastectomy. She has continued on Herceptin based therapy for multiple months thereafter. The patient developed gait imbalance in late April of this year and was noted to have innumerable and widespread metastasis, now status post whole bra in radiotherapy. She has been weaned off of steroids. Her last body imaging was from May 17 of the chest, abdominal, and pelvis. The patient has received several cycles of Abraxane along with Herceptin and Perjeta after discovery of brain metastases. The patient has fever today up to 103. Pertinent events include recent hospitalization in [place] for approximately 48 hours with cachorro ramirez around July 19, 2016 just 48 hours ago. She was discharged with oral clindamycin and was g iven a diagnosis of pneumonia and probable viral illness. No other records are available for review at this time. PAST MEDICAL HISTORY: Otherwise unremarkable. PAST SURGICAL HISTORY: Bilateral mastectomy. ALLERGIES: No known allergies. FAMILY HISTORY: Noncontributory. CURRENT MEDICATIONS: Include Cymbalta, Xanax, [place], and Ambien. REVIEW OF SYSTEMS: Positive for weight gain. Good appetite. No rashes. She did report of palpable lesion under the l eft axilla that seems consistent with local malignant recurrence. SOCIAL HISTORY: She was employed in the medical field up until recently. PHYSICAL EXAMINATION GENERAL: The patient physical exam at this time shows a chronically ill appearing young female. VITAL SIGNS: Her weight is 174 pounds, temperature 103.2, blood pressure 108/74, pulse 118, and O2 saturation are 92% on room air. She has facial edema felt secondary to steroid effect. NECK: Supple. The trachea is midline. SKIN: Negative for rash or ulcerations. HEENT: The oropharynx shows no thrush. No cervical or supraclavicular lymphadenopathy. BREASTS: 3 to 4 cm left axillary lesion, nontender. No arrhythmia. LUNGS: Negative for wheezes. There are slight inspiratory crackles, right base posterior. Left l sal is clear. ABDOMEN: Nontender with probable ascites present. EXTREMITIES: Positive pedal edema. No evidence of digital cyanosis LABS: Labs are notable for mild anemia. Tumor marker is slightly elevated. Liver and kidneys are accepta ble. X-RAYS: Imaging available show chest x-ray from today with slight right lower lobe infiltrate. IMPRESSION AND PLAN: Metastatic breast cancer with elevated temperature. Admit for repeat blood cultures and antibiotics . No treatment for today. Likely, we will change to Kadcyla in the outpatient setting. We would c onsider the addition of antifungals given her immunosuppressive state if she remains afebrile with s tandard antibiotics.
[2016-07-21] MEDS: ACETAMINOPHEN 325 MG TABLET PO PRN (21:44)
[2016-07-22] MEDS: PIPERACILLIN/TAZOBACTAM 3,375 MG in SODIUM CHLORIDE 0.9% 100 ML IV SCH ×3 (01:09→19:21)
[2016-07-22] MEDS: guaiFENesin 200 MG/10 ML UDCUP PO PRN ×3 (06:02→19:57)
[2016-07-22] MEDS: VANCOMYCIN INJ 1,250 MG in SODIUM CHLORIDE 0.9% 250 ML IV SCH ×2 (06:03→15:10)
--- NOTE | 2016-07-22 09:10 | Oncology Progress Note ---
Assessment and Plan (1) Fever Status: Acute Current Visit: No (2) Breast cancer Status: Acute Current Visit: No (3) Acute febrile illness Status: Acute Current Visit: No (4) Brain metastases Status: Acute Current Visit: No Oncology Subjective PN Interval history: There is a 46-year-old white female with metastatic HER-2 positive breast cancer with known brain metastases who was admitted for fever of unknown etiology. She also complains of persistent cough. She states it has begun to clear since being admitted. She has a palpable density in the left axilla that is concerning for progression of disease. Given her fevers of unknown etiology I think it is worthwhile doing an ultrasound of this to rule out abscess even though it feels firm and rubbery-like tumor. She is also due repeat metastatic workup as well order a CT of her chest abdomen and pelvis with IV contrast while she is here. We will continue with vancomycin and Zosyn. She most recently had a temp of 100.4 this morning. Her blood cultures are no growth. We will continue to monitor her closely. Exam - Constitutional Vitals: Period Temp Pulse Resp BP Sys/Frausto Pulse Ox Last 24 Hr 97.2 F-101.8 F 90-109 18-20 102-120/52-60 84-94 General appearance: normal weight, no acute distress - Head Head Exam: Present: normocephalic, atraumatic - Eye Eye Exam: Present: EOMI Pupils: Present: PERRL - ENT ENT exam: Present: normal exam, normal oropharynx - Neck Neck exam: Absent: lymphadenopathy, thyromegaly - Respiratory Respiratory exam: Present: CTAB. Absent: decreased breath sounds - Cardiovascular Cardiovascular exam: Present: RRR. Absent: JVD - GI/Abdominal GI/Abdominal exam: Present: soft. Absent: ascites, distended - Neurological Exam Neurological exam: Present: alert, oriented X3 - Psychiatric Psychiatric exam: Present: normal affect, normal mood - Skin Skin exam: Present: warm, dry Results - Labs Lab Results: I have reviewed the past 24 hour labs
--- NOTE | 2016-07-22 11:21 | CT Report ---
Referring physician: Fredy Meyer EXAM: CT chest, abdomen and pelvis with contrast DATE: July 22, 2016 COMPARISON: None REASON: Metastatic breast cancer TECHNIQUE: Axial images of the chest, abdomen and pelvis were obtained after administration of 100 cc of Omnipaque 350 IV contrast. Sagittal and coronal reformatted images were provided. Total DLP was 1173.0 mGy*cm. CT CHEST FINDINGS: Vascular/heart: The thoracic aorta is normal in size. There are filling defects within the segmental pulmonary arteries of the right upper lobe, extending into some of the subsegmental branches. This is concerning for pulmonary emboli. The heart is normal in size. There is minimal pericardial fluid, which is likely physiologic. A right-sided Mediport is in place with its distal tip within the SVC. Lymph nodes: There are enlarged mediastinal and bilateral hilar lymph nodes, which are concerning for metastatic adenopathy. A left hilar lymph node on image 70, series 4 measures 1.1 cm in short axis diameter. Other mediastinum/lower neck: There is a coarse calcification within the left thyroid lobe. Chest wall: The patient is status post bilateral mastectomy, and there are surgical clips at the left axilla. Adjacent to the surgical clips at the left axilla, there is subcutaneous fat stranding, which may reflect scarring or edema. Small subcutaneous nodular densities are also seen at the left axilla on image 32 (measures 1 cm) and at the high left axillary region on image 12 and image 21 (measures 1.7 cm). These nodular subcutaneous density may represent focal edema, focal scarring or seromas, but metastatic deposits/lymph nodes or small abscesses cannot be excluded. Correlation with ultrasound is recommended. Lungs: There is mild bilateral pleural fluid. Interlobular septal thickening is present bilaterally, and there are scattered opacities within both lungs, mainly within the lower lobes. This is concerning for pulmonary edema and atelectasis. However, superimposed pneumonia or metastatic pulmonary disease is not excluded, especially within the left lower lobe where there is a focal opacity which measures 3.7 cm on image 97 and within the left upper lobe where there is a 1.2 cm focal opacity. Follow-up is recommended. No pneumothorax is identified. Bones: No acute osseous process is identified. IMPRESSION: 1. The patient has a history of breast cancer and is status post bilateral mastectomy. There are nodular subcutaneous densities at the left axilla. This may represent surgical scarring, edema or seromas. However, metastatic deposits or even developing abscesses cannot be excluded. Correlation with ultrasound is recommended. 2. There are suspicious enlarged lymph nodes at the mediastinum and bilateral kat. This is concerning for metastatic adenopathy. Other considerations include adenopathy related to an infectious or granulomatous process. 3. There are filling defects within the segmental pulmonary arteries at the right upper lobe, extending into the subsegmental branches. This is consistent with pulmonary emboli. 4. Mild bilateral pleural fluid. 5. Interlobular septal thickening is present bilaterally, and there are scattered opacities within both lungs, mainly within the lower lobes. This likely represents pulmonary edema and atelectasis, but superimposed pneumonia or metastatic pulmonary disease is not excluded, especially within the left lower lobe and left upper lobe. Findings were discussed with Dr. Saab on July 22, 2016. ABDOMEN AND PELVIS FINDINGS: ABDOMEN: Liver: Unremarkable. Gallbladder and bile ducts: The gallbladder is unremarkable. No biliary duct dilatation is present. Pancreas: Unremarkable. Spleen: Unremarkable. Adrenals: Unremarkable. Kidneys and ureters: No hydronephrosis or suspicious renal lesion is identified. The ureters are unremarkable as visualized. PELVIS: Bladder: The bladder is poorly distended and difficult to evaluate. Reproductive: There is a T-shaped density within the uterus, consistent with an IUD. Density is also seen at the right adnexa and could represent calcification or a tubal ligation clip. The ovaries are poorly visualized, but no suspicious adnexal lesion is seen. ABDOMEN AND PELVIS: Bowel: There is no evidence of bowel obstruction or inflammation. Appendix: The appendix is unremarkable. Vasculature: The abdominal aorta is normal in size. Peritoneum/retroperitoneum: There is minimal free fluid within the pelvis. This could be physiologic in a premenopausal female. No free air is identified. Lymph nodes: No suspicious adenopathy is seen. Abdominal/pelvic wall: Unremarkable. Bones: There is a 1 cm sclerotic density within the left posterior elements of L3. This may represent a bone island, but metastatic disease cannot be excluded given the history of breast cancer. There is also severe left facet arthropathy at L4-L5. IMPRESSION: 1. 1 cm sclerotic density is seen at the left posterior elements of L3. This could represent a benign process such as a bone island. However, metastatic osseous disease cannot be excluded given the history of breast cancer. Follow-up is recommended to confirm a benign process. 2. Minimal free fluid within the pelvis. This could be physiologic in a premenopausal female. 3. IUD. The CT exam was performed using one or more of the following dose reduction techniques: Automated exposure control and adjustment of the mA and/or kV according to patient size. PROCEDURE INTERPRETED AT [facility] DEPARTMENT OF RADIOLOGY Final Report Signed by: Dr. Tanya Anna
--- NOTE | 2016-07-22 11:26 | Ultrasound Report ---
Referring Physician: Fredy Meyer Exam: US breast LT Date: July 22, 2016 Reason: History of left breast cancer, mastectomy with new axillary mass Comparison: CT chest, abdomen and pelvis July 22, 2016 Technique: Grayscale ultrasound images of the left axilla were obtained. The patient is status post left mastectomy. Ultrasound images were captured and stored. Findings: Within the left axilla, there is a 0.7 x 0.6 x 0.5 cm fluid collection. Adjacent to this fluid collection, there is a curvilinear hypodensity, which is suspicious for a mildly enlarged lymph node. However, other considerations include an irregular subcutaneous fluid collection. It measures 0.8 x 0.7 x 0.6 cm. In the high left axillary region, there is an additional small subcutaneous fluid collection, measuring 0.5 x 0.4 x 0.2 cm. Impression: 1. Within the left axilla and in the left high axillary region, there are 2 small fluid collections, measuring up to 0.7 cm. They could represent small seromas, but small abscesses are in the differential if there is a history of a soft tissue infection in this region. 2. There is a small curvilinear hypodensity within the left axilla, which could represent an additional small subcutaneous fluid collection or mildly prominent lymph node. A mildly prominent lymph node is favored, which raises the possibility of metastatic left axillary adenopathy in this patient with a history of metastatic breast cancer. PROCEDURE INTERPRETED AT [facility] DEPARTMENT OF RADIOLOGY Final Report Signed by: Dr. Tanya Anna
[2016-07-22] MEDS: SODIUM CHLORIDE 0.9% 1,000 ML IV SCH (19:20)
[2016-07-22] MEDS: ACETAMINOPHEN 325 MG TABLET PO PRN (20:37)
[2016-07-22] MEDS: ALBUTEROL/IPRATROPIUM 3 ML NEB RESP TX SCH (20:57)
[2016-07-22] MEDS ORDERED: ENOXAPARIN 60 MG/0.6 ML SYRINGE SUBCUT ONE (21:00)
[2016-07-22] MEDS: HYDROcodone/CHLORPHENIRAMINE ER 5 ML UDCUP PO SCH (21:14)
[2016-07-23] MEDS: ALBUTEROL/IPRATROPIUM 3 ML NEB RESP TX SCH ×4 (00:17→18:57)
[2016-07-23 02:17] LABS: Basophils % 0.3 % (0.0-0.8); Eosinophils % 0.5 % (0.00-10.9); Hematocrit 25.6 VOL% (35.7-47.0); Hemoglobin 8.2 GM/DL (12.0-16.0); Immature Granulocytes % 2.3 %; Immature Granulocytes Absolute 0.18 #; Lymphocytes % 25.3 % (21.3-54.2); Mean Corpuscular Hemoglobin 32 PG (27-34); Mean Corpuscular Volume 100.8 FL (87-102); Mean Platelet Volume 9.5 FL (9.6-12.0); Monocytes # 0.4 10*3/uL (0.11-0.8); Monocytes % 5.1 % (1.7-12.7); NRBC # 0.09 10*3/uL; Neutrophils # 5.2 10*3/uL (1.4-7.4); Neutrophils % 66.5 % (38.7-73.9); Platelet Count 221 T/CUMM (130-400); Red Blood Count 2.54 MC/CUMM (3.8-5.5); Red Cell Distribution Width 21.3 % (9.3-17.3); White Blood Count 7.8 T/CUMM (4-12)
[2016-07-23 02:41] LABS: Albumin 2.2 G/DL (3.4-5.0); Bilirubin,Total 0.4 MG/DL (0.2-1.0); Calcium 7.9 MG/DL (8.5-10.1); Osmolality,Calculated 285.8 MOS/KG (273-304); Potassium 3.1 MMOL/L (3.5-5.1)
[2016-07-23] MEDS: VANCOMYCIN INJ 1,250 MG in SODIUM CHLORIDE 0.9% 250 ML IV SCH ×2 (02:50→15:37)
[2016-07-23 02:52] LABS: Partial Thromboplastin Time 28.9 SECS (0-40)
[2016-07-23 03:50] LABS: Anisocytosis 2+; Band Neutrophils 2 % (0-10); Eosinophils 1 % (0-10); Hypochromasia 2+; Lymphocytes 30 % (20-55); Macrocytosis 2+; Nucleated Red Blood Cells 1 (0-5); Ovalocytes 1+; Platelet Estimate Normal; Polychromasia Few; Segmented Neutrophils 62 % (50-85); Total Cells Counted 100
[2016-07-23] MEDS: PIPERACILLIN/TAZOBACTAM 3,375 MG in SODIUM CHLORIDE 0.9% 100 ML IV SCH ×2 (04:11→21:53)
[2016-07-23] MEDS: guaiFENesin 200 MG/10 ML UDCUP PO PRN ×2 (07:35→15:50)
[2016-07-23] MEDS: HYDROcodone/CHLORPHENIRAMINE ER 5 ML UDCUP PO SCH ×2 (08:44→20:19)
[2016-07-23] MEDS ORDERED: SODIUM CHLORIDE 0.9% 250 ML IV PRN (10:23)
[2016-07-23] MEDS ORDERED: FUROSEMIDE 40 MG/4 ML VIAL IV ONE (10:23)
--- NOTE | 2016-07-23 10:29 | Oncology Progress Note ---
Assessment and Plan (1) Fever Status: Acute Current Visit: No (2) Breast cancer Status: Acute Current Visit: No (3) Acute febrile illness Status: Acute Current Visit: No (4) Brain metastases Status: Acute Current Visit: No Oncology Subjective PN Interval history: Ms. Duran still having low-grade fevers around 99-100 today. She states she is still coughing but is slightly improved with the cough medicine. Her CT scan yesterday showed bilateral hilar mediastinal lymph nodes but there is no previous scan in our system to compare to. There is a definitive new lymph node in her left axilla that is easily palpable on exam and identified on ultrasound. This area does not appear to be an abscess. The CT scan also showed bilateral lung opacities which is difficult to determine if these are infiltrates versus her known previous metastases. There is also mention of filling defects in her right lung vasculature consistent with pulmonary emboli. We have started her on anticoagulation. Today I will give her 2 units of blood since she is requiring oxygen supplementation and her hemoglobin is only 8. I will give her Lasix twice today. Once before blood and once after blood. We will obtain ultrasounds of bilateral lower extremities to rule out DVTs. She has some mild swelling of both ankles. We will continue with her current antibiotics. Hopefully she will improve over the next few days. We are trying to obtain the reports from [facility] so that her previous CT scan can be compared to her most recent one done yesterday. Exam - Constitutional Vitals: Period Temp Pulse Resp BP Sys/Frausto Pulse Ox Last 24 Hr 97.9 F-101.1 F 88-120 18-20 104-131/52-69 71-99 General appearance: normal weight, no acute distress - Head Head Exam: Present: normocephalic, atraumatic - Eye Eye Exam: Present: EOMI Pupils: Present: PERRL - ENT ENT exam: Present: normal exam, normal oropharynx - Neck Neck exam: Absent: lymphadenopathy, thyromegaly - Respiratory Respiratory exam: Present: CTAB. Absent: wheezes - Cardiovascular Cardiovascular exam: Present: RRR. Absent: JVD, systolic murmur - Neurological Exam Neurological exam: Present: alert, oriented X3 - Psychiatric Psychiatric exam: Present: normal affect, normal mood - Skin Skin exam: Present: warm, dry Results - Labs CBC & BMP: 07/23/16 01:50 07/23/16 01:50 Lab Results: I have reviewed the past 24 hour labs
--- NOTE | 2016-07-23 11:16 | Ultrasound Report ---
Exam: Bilateral lower extremity venous Doppler ultrasound Comparison: None Clinical history: Leg edema Technique: Duplex scan of the lower extremity veins using B-mode/grayscale scaled imaging and Doppler spectral analysis and color flow. Findings: Major venous structures of the lower extremities demonstrate a normal course and caliber. Normal color-flow study and spectral analysis. There is normal compression and augmentation of bilateral common femoral, superficial femoral and popliteal veins. The proximal bilateral greater saphenous veins appear to be patent. Impression: No evidence to suggest deep venous thrombosis within either lower extremity. Ultrasound images were captured and stored. PROCEDURE INTERPRETED AT [facility] DEPARTMENT OF RADIOLOGY Final Report Signed by: Dr. Karen Riley
[2016-07-23] MEDS: ENOXAPARIN 80 MG/0.8 ML SYRINGE SUBCUT SCH ×2 (11:37→21:54)
[2016-07-23] MEDS: SODIUM CHLORIDE 0.9% 1,000 ML IV SCH (17:26)
[2016-07-23] MEDS ORDERED: FUROSEMIDE 20 MG/2 ML VIAL IV ONE (18:00)
[2016-07-23] MEDS: VANCOMYCIN INJ 1,000 MG in SODIUM CHLORIDE 0.9% 250 ML IV SCH (20:22)
[2016-07-24] MEDS: ALBUTEROL/IPRATROPIUM 3 ML NEB RESP TX SCH ×4 (00:28→19:27)
[2016-07-24] MEDS: VANCOMYCIN INJ 1,000 MG in SODIUM CHLORIDE 0.9% 250 ML IV SCH ×3 (04:31→21:22)
[2016-07-24 05:22] LABS: Basophils % 0.5 % (0.0-0.8); Eosinophils # 0.1 10*3/uL (0.0-0.87); Eosinophils % 1.2 % (0.00-10.9); Hematocrit 32.2 VOL% (35.7-47.0); Hemoglobin 10.4 GM/DL (12.0-16.0); Immature Granulocytes % 2.6 %; Immature Granulocytes Absolute 0.17 #; Lymphocytes # 1.7 10*3/uL (1.4-4.0); Lymphocytes % 26.2 % (21.3-54.2); Mean Corpuscular HGB Conc 32.3 GM/DL (32-36); Mean Corpuscular Hemoglobin 31 PG (27-34); Mean Corpuscular Volume 95.3 FL (87-102); Mean Platelet Volume 9.7 FL (9.6-12.0); Monocytes # 0.5 10*3/uL (0.11-0.8); Monocytes % 7.7 % (1.7-12.7); NRBC # 0.15 10*3/uL; Neutrophils % 61.8 % (38.7-73.9); Platelet Count 248 T/CUMM (130-400); Red Blood Count 3.38 MC/CUMM (3.8-5.5); Red Cell Distribution Width 22.4 % (9.3-17.3); White Blood Count 6.5 T/CUMM (4-12)
[2016-07-24 05:48] LABS: Calcium 7.9 MG/DL (8.5-10.1); Potassium 2.7 MMOL/L (3.5-5.1)
[2016-07-24] MEDS: PIPERACILLIN/TAZOBACTAM 3,375 MG in SODIUM CHLORIDE 0.9% 100 ML IV SCH ×2 (05:50→13:00)
[2016-07-24] MEDS: guaiFENesin 200 MG/10 ML UDCUP PO PRN ×2 (07:29→18:22)
[2016-07-24 07:45] LABS: Polychromasia Slight
[2016-07-24] MEDS: HYDROcodone/CHLORPHENIRAMINE ER 5 ML UDCUP PO SCH ×2 (08:40→21:23)
[2016-07-24] MEDS: ENOXAPARIN 80 MG/0.8 ML SYRINGE SUBCUT SCH ×2 (10:18→21:30)
--- NOTE | 2016-07-24 11:00 | Oncology Progress Note ---
Assessment and Plan (1) Fever Status: Acute Current Visit: No (2) Breast cancer Status: Acute Current Visit: No (3) Acute febrile illness Status: Acute Current Visit: No (4) Brain metastases Status: Acute Current Visit: No Oncology Subjective PN Interval history: Ms. Duran is feeling better today. She responded well to 2 units of blood plus Lasix diuresis yesterday. She is not having any fevers now in the last 12 hours. Her edema is improved. Her cough is improving as well. We will continue with her current antibiotics. I will defer discussion of her recent CT scan to Dr. Meyer as there is room for opinion about whether she is truly progressed or not. The palpable lymph node in her left axilla is very concerning. She is not having any bleeding or bruising with the addition of Lovenox due to the same pulmonary emboli on CT scan. We could consider doing a PE protocol CT to confirm these are truly present. Dopplers of the lower extremity were negative. She seems to be in good spirits. Family is at bedside this morning. Exam - Constitutional Vitals: Period Temp Pulse Resp BP Sys/Frausto Pulse Ox Last 24 Hr 97.8 F-100.5 F 88-106 18-20 99-133/53-73 90-99 General appearance: normal weight, no acute distress - Head Head Exam: Present: normocephalic, atraumatic - Eye Eye Exam: Present: EOMI Pupils: Present: PERRL - ENT ENT exam: Present: normal exam, normal oropharynx - Neck Neck exam: Absent: lymphadenopathy, thyromegaly - Respiratory Respiratory exam: Present: CTAB. Absent: wheezes Results - Labs CBC & BMP: 07/24/16 04:15 07/24/16 04:15
[2016-07-24] MEDS: SODIUM CHLORIDE 0.9% 1,000 ML IV SCH (17:56)
[2016-07-24] MEDS: TEMAZEPAM 7.5 MG CAPSULE PO PRN (21:23)
[2016-07-25] MEDS: ALBUTEROL/IPRATROPIUM 3 ML NEB RESP TX SCH ×4 (00:06→20:07)
[2016-07-25] MEDS: PIPERACILLIN/TAZOBACTAM 3,375 MG in SODIUM CHLORIDE 0.9% 100 ML IV SCH ×4 (00:10→22:01)
[2016-07-25] MEDS: VANCOMYCIN INJ 1,000 MG in SODIUM CHLORIDE 0.9% 250 ML IV SCH ×3 (04:36→20:48)
[2016-07-25] MEDS: HYDROcodone/CHLORPHENIRAMINE ER 5 ML UDCUP PO SCH ×2 (09:04→20:47)
--- NOTE | 2016-07-25 09:11 | Oncology Progress Note ---
Oncology Subjective PN Interval history: Metastatic breast cancer admitted 4 days prior with fever. Her cultures are negative. At this point she has been found to have pulmonary emboli. She has some atelectasis and mild bilateral pleural effusions. She was O2 dependent on admission and we will recheck her saturations today. We are anticipating discharge later this week and with we will need to determine if she will need home oxygen or not. She is ambulatory and overall nontoxic appearing. Her lungs are clear. There is firmness in the left axilla with some small findings noted on ultrasound. She has nodes in the chest though the largest reported is only 1.1 cm. Of note this CT scan was not a direct comparison to her prior from [facility]. I am going to update her brain MRI while she is here and consider for discharge possibly tomorrow. I have discussed Kadcyla as a reasonable next course of therapy. Exam - Constitutional Vitals: Period Temp Pulse Resp BP Sys/Frausto Pulse Ox Last 24 Hr 97.3 F-99.2 F 85-107 18-21 100-120/55-62 90-99 Results - Labs CBC & BMP: 07/24/16 04:15 07/24/16 04:15
[2016-07-25] MEDS ORDERED: POTASSIUM CHLORIDE 20 MEQ TABLET PO ONE (09:18)
--- NOTE | 2016-07-25 10:10 | XRay Report ---
Orbit screen Indication: MRI screening Findings: No evidence of radiopaque foreign bodies or other metallic densities project over the orbits. No other abnormality seen. Impression: No evidence of orbit abnormality demonstrated. PROCEDURE INTERPRETED AT [facility] DEPARTMENT OF RADIOLOGY Final Report Signed by: Dr. Mike Shaw
--- NOTE | 2016-07-25 13:34 | Magnetic Resonance Report ---
Exam: MR head/brain w and wo con Date: 07/25/2016 9:09 AM Comparison: 05/07/2016 Indication: Metastatic breast cancer Technical: 1.5 Laura magnet Axial T1 pre-and postcontrast, ADC, DWI, FLAIR, gradient echo and FSE T2 Sagittal T1 precontrast, FLAIR Coronal postcontrast T1 Contrast: 15 cc Dotarem Findings: Exam reveals no acute ADC/ diffusion imaging. The brainstem exhibit minimal ischemic changes suspected in the brainstem. The cerebellum is demonstrated with marked decrease in the number and size of mass is present with compared to the previous examination. The cerebral hemispheres exhibit abnormal signal characteristics. Blotchy areas of abnormal signal in the periventricular subcortical white matter regions present bilaterally. When compared to the previous examination the multiple areas of contrast enhancing lesions within the cerebral hemispheres are not clearly delineated. The corpus callosum is unremarkable. The seventh and eighth cranial nerves and cerebral pontine angles are intact. The pituitary gland, infundibulum and optic chiasm are intact. The paranasal sinuses exhibit inflammation in the ethmoid air cells bilaterally and left sphenoid sinus. Mild inflammation in the maxillary antrum region and the mastoid air cells bilaterally. The globes and intra-and extraconal spaces are unremarkable. Impression: 1. Marked improvement with decrease in size and number of metastatic lesions in the cerebellum and cerebral hemispheres when compared to the prior exam. No obvious contrast enhancing lesion clearly demonstrated on today's study. 2. Bilateral ethmoid maxillary and left sphenoid sinusitis PROCEDURE INTERPRETED AT [facility] DEPARTMENT OF RADIOLOGY Final Report Signed by: Dr. Gus Hurst
[2016-07-25] MEDS: RIVAROXABAN 15 MG TABLET PO SCH (17:20)
[2016-07-25] MEDS: guaiFENesin 200 MG/10 ML UDCUP PO PRN (19:37)
[2016-07-25] MEDS: TEMAZEPAM 7.5 MG CAPSULE PO PRN (20:48)
[2016-07-26 05:43] LABS: Basophils % 0.3 % (0.0-0.8); Eosinophils # 0.1 10*3/uL (0.0-0.87); Eosinophils % 1.4 % (0.00-10.9); Hematocrit 33.2 VOL% (35.7-47.0); Hemoglobin 10.4 GM/DL (12.0-16.0); Immature Granulocytes % 1.8 %; Immature Granulocytes Absolute 0.13 #; Lymphocytes # 1.8 10*3/uL (1.4-4.0); Mean Corpuscular HGB Conc 31.3 GM/DL (32-36); Mean Corpuscular Hemoglobin 31 PG (27-34); Mean Corpuscular Volume 98.8 FL (87-102); Mean Platelet Volume 9.4 FL (9.6-12.0); Monocytes # 0.5 10*3/uL (0.11-0.8); Monocytes % 6.2 % (1.7-12.7); NRBC # 0.07 10*3/uL; Neutrophils # 4.7 10*3/uL (1.4-7.4); Neutrophils % 65.3 % (38.7-73.9); Platelet Count 304 T/CUMM (130-400); Red Blood Count 3.36 MC/CUMM (3.8-5.5); Red Cell Distribution Width 22.8 % (9.3-17.3); White Blood Count 7.2 T/CUMM (4-12)
[2016-07-26] MEDS: VANCOMYCIN INJ 1,000 MG in SODIUM CHLORIDE 0.9% 250 ML IV SCH ×3 (05:50→21:58)
[2016-07-26] MEDS: ALBUTEROL/IPRATROPIUM 3 ML NEB RESP TX SCH ×4 (06:03→19:20)
[2016-07-26 06:10] LABS: Band Neutrophils 3 % (0-10); Hypochromasia 1+; Lymphocytes 21 % (20-55); Ovalocytes Slight; Platelet Estimate Adequate; Segmented Neutrophils 66 % (50-85); Total Cells Counted 100
[2016-07-26 06:11] LABS: Macrocytosis Slight; Polychromasia Slight
[2016-07-26 06:13] LABS: Albumin 2.2 G/DL (3.4-5.0); Bilirubin,Total 0.8 MG/DL (0.2-1.0); Calcium 7.9 MG/DL (8.5-10.1); Magnesium 2.4 MG/DL (1.8-2.4); Osmolality,Calculated 274.5 MOS/KG (273-304); Potassium 3.5 MMOL/L (3.5-5.1); Total Protein 5.6 G/DL (6.4-8.3)
[2016-07-26] MEDS ORDERED: HYDROcodone/HOMATROPINE 5 ML UDCUP PO PRN (08:44)
--- NOTE | 2016-07-26 08:52 | Oncology Progress Note ---
Oncology Subjective PN Interval history: Hospital day 6 for a patient admitted with 103 fever and cough. Since admission found to have pulmonary embolism initially on Lovenox now on Xarelto. Her cough has escalated over the last 24 hours and she is requiring increased amounts of O2. We will prescribe some antitussives today. Her weight is approximately 5 pounds though she is not on IV fluids presently. Cardiac BNP is ordered. She does have a history of potential cardiotoxic chemotherapeutic exposure. Her cultures are negative here and she is currently afebrile. She has received vancomycin and Zosyn with appropriate monitoring since the day of admission. She is awake alert and oriented. Bilateral pulmonary congestion is noted on posterior bibasilar auscultation left greater than right. Mental status is appropriate at this time. We reviewed an MRI of the brain compared to May 07 post radiation effect that shows marked improvement of her [employer] metastasis. I have encouraged her to sit in the chair and better aerate her lung thurston. Incentive spirometer as ordered as well as continued pulmonary nebulization treatments. Continuing antibiotics and anticoagulation. I think we are seeing late effects of her pulmonary embolus at this time. Sputum cultures ordered Exam - Constitutional Vitals: Period Temp Pulse Resp BP Sys/Frausto Pulse Ox Last 24 Hr 97.1 F-99.6 F 81-101 16-20 98-135/49-68 81-99 Results - Labs CBC & BMP: 07/26/16 04:00 07/26/16 04:00
[2016-07-26] MEDS: RIVAROXABAN 15 MG TABLET PO SCH ×2 (09:16→17:51)
[2016-07-26] MEDS: HYDROcodone/CHLORPHENIRAMINE ER 5 ML UDCUP PO SCH ×2 (09:17→20:05)
[2016-07-26] MEDS: PIPERACILLIN/TAZOBACTAM 3,375 MG in SODIUM CHLORIDE 0.9% 100 ML IV SCH ×3 (09:18→23:56)
--- NOTE | 2016-07-26 12:00 | Pulmonology Consult Note ---
Assessment and Plan (1) Pulmonary embolism Status: Acute Assessment and plan: Standard CT showed evidence of pulmonary emboli in the right upper lobe coronary artery. Patient is on Xarelto at present. I reviewed the film and agree that this is consistent with pulmonary embolism. Venous Dopplers of legs were negative. Current Visit: Yes (2) Acute bronchitis Status: Acute Assessment and plan: Patient is having wheezing, bronchospasm. Long-term history of smoking. Needs treatment for acute bronchitis. Could have COPD but it is not known at this point. She smoked for a long time. We will treat her for that. This is likely playing a big part in her hypoxemia Current Visit: Yes (3) Tobacco abuse Status: Acute Assessment and plan: Patient has stopped smoking already. She was not clear on the time but I think it has been a couple of months ago. Current Visit: Yes (4) Left lower lobe lung lesion Status: Acute Assessment and plan: She has had previous CT images done at [place]. We will obtain old CT discs to review and see if this lesion has been there in the past. Could be a focal pneumonia could be metastatic disease could be a scar. Current Visit: Yes (5) Breast cancer Status: Acute Assessment and plan: Has widespread metastatic breast cancer including brain metastases. Has had chemotherapy as recently as about 2 weeks ago. Current Visit: No (6) Brain metastases Status: Acute Assessment and plan: This is been treated with radiation Current Visit: No History of Present Illness Chief complaint: Hypoxemia History of present illness: Ms. Duran is a 46 year old female with a history of left breast cancer. She has had a mastectomy and chemotherapy. She has residual chest wall nodules. She was found to have a pulmonary nodule originally as well. She was visiting in [place] and developed cough congestion yellow sputum production and fever about a week and a half ago. She was hospitalized in [facility] for about 2 days and then sent home and she returned here. She saw Dr. Meyer and he put her in the hospital 6 days ago here. She was found on CT scan to have a pulmonary embolus in her right upper lobe bronchus but with abnormalities in both lower lobes including some thickening of the pleura and 3.7 cm irregular lesion in the left lower lobe. She is feeling a little better but still coughing up some phlegm and short of breath. She was a smoker until just a few months ago. There is no known history of chronic lung disease. Home Medications Medication Instructions Recorded Confirmed Type RX: ALPRAZolam [Xanax] 1 - 2 tablet PO TID PRN 12/19/14 07/21/16 History RX: Duloxetine HCl [Cymbalta] 60 mg PO BEDTIME 12/19/14 07/21/16 History RX: Promethazine Tab [Phenergan 25 mg PO Q4H PRN 12/19/14 07/21/16 History Tab] RX: Zolpidem Tartrate 10 mg PO BEDTIME PRN 05/06/16 07/21/16 History RX: ALPRAZolam [Xanax] 1 mg PO BEDTIME PRN #0 tablet 05/09/16 07/21/16 Rx Allergies Allergy/AdvReac Type Severity Reaction Status Date / Time No Known Allergies Allergy Verified 05/06/16 10:56 12 point system: reviewed and no additional remarkable complaints except as stated - Constitutional Constitutional: Present: fatigue, fever(s), lethargy, malaise - Cardiovascular Cardiovascular: Present: dyspnea, dyspnea on exertion - Respiratory Respiratory: Present: cough, dyspnea, dyspnea on exertion, wheezing, change in phlegm color Exam (Pulmonay) H&P - Constitutional Vitals: Period Temp Pulse Resp BP Sys/Frausto Pulse Ox Last 24 Hr 97.1 F-99.6 F 81-101 16-20 98-135/54-68 81-99 Exam: Patient is alert oriented vital signs normal. Oxygen saturation 95% on 40% facemask. Pupils react to light. Throat is clear. Neck supple no bruits. Chest reveals some bilateral expiratory rhonchi and a few wheezes. Heart normal rate and rhythm no murmurs no rubs no gallops. Abdomen soft nontender no masses. Bowel sounds present. Extremities no clubbing cyanosis or edema. Calves are nontender. Left breast surgically absent. Nodules over the left chest wall. Medical,Surgical,& Family Hx - Medical History Neurology: History of: Migraine Genitourinary: History of: Kidney Stones Hematology: No history of: Blood Transfusion Reaction Reproductive: History of: Breast Cancer (left) Other: History of: Cancer - Surgical History Thoracic Surgeries: Surgical HX of;: Lithotripsy (1999) Patient denies;: Organ Transplant, Lobectomy Neurologic Surgeries: Patient denies: Neurologic Surgery Abdominal Surgeries: Patient denies: Abdominal Surgery Reproductive Surgeries: Surgical HX of;: Section (1994, 2008) - Family History Family History: Reports;: Family Hypertension (father) - Social History Smoking Status: Former smoker Frequency of Alcohol Use: None Type of Drug Use: None Results - Labs CBC & BMP: 07/26/16 04:00 07/26/16 04:00 Lab Results: I have reviewed the past 24 hour labs - Diagnostic Findings Procedure: CT - chest: image reviewed by me (Pulmonary emboli right upper lobe. Patchy irregular infiltrates in both lower lobes. 3.7 cm irregular shaped opacity in left base.)
[2016-07-26] MEDS: methylPREDNISolone SOD SUC 40 MG/1 ML VIAL IV SCH ×2 (12:58→20:01)
--- NOTE | 2016-07-26 19:37 | ECHO Report ---
Ara Duran 07/26/2016 Exam Date: 16:17 Referring Physician: Jessica Molina Technologist: TYLER Age: 46 Ht (in): 67 Wt (lb): 177 FExam Location: [facility] Gender: Echo [id number]: PTED, Dyspnea, R/O PHT, feverIndications: BP: / HR: 90 SinusRhythm: FairTechnical Quality: IMPRESSIONS 1. Left ventricle is normal size systolic function with ejection fraction 55%. There is mild concentric left ventricular hypertrophy but no gross diastolic dysfunction. 2. Other car chambers overall normal size but there may be a small area of hypokinesis in the right ventricle but this may be artifact. 3. Cardiac valves are grossly normal without any significant abnormalities. 4. There is no gross evidence for primary hypertension. MEASUREMENTS (Male / Female) Normal Values 2D ECHO LV Diastolic Diameter PLAX 4.0 cm 4.2 - 5.9 / 3.9 - 5.3 cm LV Systolic Diameter PLAX 3.0 cm LV Fractional Shortening PLAX 25.7 % IVS Diastolic Thickness 1.2 cm 0.6 - 1.0 / 0.6 - 0.9 cm LVPW Diastolic Thickness 1.2 cm 0.6 - 1.0 / 0.6 - 0.9 cm RV Internal Dim ED PLAX 2.8 cm Aortic Root Diameter 2.2 cm LA Systolic Diameter LX 3.1 cm 3.0 - 4.0 / 2.7 - 3.8 cm DOPPLER TR Peak Velocity 231.0 cm/s TR Peak Gradient 21.3 mmHg FINDINGS Left Ventricle Left ventricle is normal size with overall normal systolic function ejection fraction 55%. There were some mild concentric left ventricular hypertrophy. There is no gross evidence of diastolic dysfunction. Right Ventricle Normal right ventricular size. There is no possible area of hypokinesis but this may be artifactual. Right Atrium Normal right atrial size. Left Atrium Normal left atrial size. Mitral Valve Mitral valve is anatomically functionally normal. No gross Doppler abnormalities. Aortic Valve Aortic valve is probably a tricuspid structure. It appears be grossly normal anatomically functionally without significant Doppler abnormalities appreciated. Tricuspid Valve Probably normal tricuspid valve with trace regurgitation. Estimated right sided pressures are 26-31 mmHg. Pulmonic Valve Pulmonic valve not well visualized. Pericardium No pericardial effusion. Aorta Normal size aortic root and proximal ascending aorta. Fredy Kim MD (Electronically Signed) 26 July 2016 Final Date: 19:36
[2016-07-27] MEDS: ALBUTEROL/IPRATROPIUM 3 ML NEB RESP TX SCH ×4 (01:00→19:51)
[2016-07-27] MEDS: VANCOMYCIN INJ 1,000 MG in SODIUM CHLORIDE 0.9% 250 ML IV SCH ×3 (04:35→21:11)
[2016-07-27] MEDS: methylPREDNISolone SOD SUC 40 MG/1 ML VIAL IV SCH ×3 (04:36→21:06)
--- NOTE | 2016-07-27 08:27 | Pulmonology Progress Note ---
Pulmonary - PN: Subj Interval history: This 46-year-old lady has breast cancer with metastasis to her brain. She also has pulmonary emboli. She had acute bronchitis with bronchospasm. She is a former smoker. She has a lesion in her left lower lobe. We have gotten some discs in from [place] on her old CTs but they are not up on the computer where I can review them as yet to see if this left lower lobe lung lesion is new or old. Basically she is feeling better and is less short of breath. Still requiring some oxygen. We will wean oxygen further. We did an echocardiogram and it was okay. Thus her hypoxemia is multifactorial including pulmonary embolism, acute bronchitis, chronic scarring process in the lungs and the possible metastatic site at the left base. Exam (Progress Note) - Constitutional Vitals: Period Temp Pulse Resp BP Sys/Frausto Pulse Ox Last 24 Hr 96.3 F-98.6 F 79-98 18-20 95-120/50-67 94-99 Exam: She is alert oriented vital signs normal. Pupils react to light. Throat is clear. Neck supple no bruits. Chest sounds clear prolonged expiratory phase no active wheezing. Heart normal rate rhythm no murmurs. Abdomen soft no masses. Extremities no clubbing cyanosis edema. Calves nontender. Results - Labs CBC & BMP: 07/26/16 04:00 07/26/16 04:00 Lab Results: I have reviewed the past 24 hour labs Assessment and Plan (1) Pulmonary embolism Status: Acute Assessment and plan: Standard CT showed evidence of pulmonary emboli in the right upper lobe coronary artery. Patient is on Xarelto at present. I reviewed the film and agree that this is consistent with pulmonary embolism. Venous Dopplers of legs were negative. 07/27/2016 agree with long-term treatment with Xarelto. Current Visit: Yes (2) Acute bronchitis Status: Acute Assessment and plan: Patient is having wheezing, bronchospasm. Long-term history of smoking. Needs treatment for acute bronchitis. Could have COPD but it is not known at this point. She smoked for a long time. We will treat her for that. This is likely playing a big part in her hypoxemia 07/27/2016 this appears improved. Taper medications. Current Visit: Yes (3) Tobacco abuse Status: Acute Assessment and plan: Patient has stopped smoking already. She was not clear on the time but I think it has been a couple of months ago. Current Visit: Yes (4) Left lower lobe lung lesion Status: Acute Assessment and plan: She has had previous CT images done at [place]. We will obtain old CT discs to review and see if this lesion has been there in the past. Could be a focal pneumonia could be metastatic disease could be a scar. 07/27/[address] images from [place] to compare when they are available. Current Visit: Yes (5) Breast cancer Status: Acute Assessment and plan: Has widespread metastatic breast cancer including brain metastases. Has had chemotherapy as recently as about 2 weeks ago. Current Visit: No (6) Brain metastases Status: Acute Assessment and plan: This is been treated with radiation 07/27/[address] shows marked improvement in multiple metastatic sites. Current Visit: No
[2016-07-27] MEDS: RIVAROXABAN 15 MG TABLET PO SCH ×2 (08:28→16:48)
[2016-07-27] MEDS: PIPERACILLIN/TAZOBACTAM 3,375 MG in SODIUM CHLORIDE 0.9% 100 ML IV SCH ×2 (08:28→16:04)
[2016-07-27] MEDS: HYDROcodone/CHLORPHENIRAMINE ER 5 ML UDCUP PO SCH ×2 (08:35→21:12)
--- NOTE | 2016-07-27 09:03 | Oncology Progress Note ---
Oncology Subjective PN Interval history: The patient appears improved today. She is on nasal cannula. There is some residual congestion in the right base posterior. Her cough is also improved. Preliminary report on echocardiogram looks good. CT from [place] is being uploaded and plan to directly compare to our recent study. Favorable MRI results noted. Labs notable for anemia with normal white blood cell count. No fever overnight. Continuing on antibiotics and anticoagulation. Best case scenario would be discharge home in 48-72 hours from this point Exam - Constitutional Vitals: Period Temp Pulse Resp BP Sys/Frausto Pulse Ox Last 24 Hr 96.3 F-98.6 F 79-98 18-20 95-120/50-67 94-99 Results - Labs CBC & BMP: 07/26/16 04:00 07/26/16 04:00
[2016-07-28] MEDS: PIPERACILLIN/TAZOBACTAM 3,375 MG in SODIUM CHLORIDE 0.9% 100 ML IV SCH ×3 (00:13→16:05)
[2016-07-28] MEDS: ALBUTEROL/IPRATROPIUM 3 ML NEB RESP TX SCH ×4 (00:57→20:17)
[2016-07-28] MEDS: VANCOMYCIN INJ 1,000 MG in SODIUM CHLORIDE 0.9% 250 ML IV SCH ×2 (04:38→13:17)
--- NOTE | 2016-07-28 08:59 | Pulmonology Progress Note ---
Pulmonary - PN: Subj Interval history: This 46-year-old lady has breast cancer with metastasis to her brain. She also has pulmonary emboli. She had acute bronchitis with bronchospasm. She is a former smoker. She has a lesion in her left lower lobe. We have gotten some discs in from [place] on her old CTs but they are not up on the computer where I can review them as yet to see if this left lower lobe lung lesion is new or old. Basically she is feeling better and is less short of breath. Still requiring some oxygen. We will wean oxygen further. We did an echocardiogram and it was okay. Thus her hypoxemia is multifactorial including pulmonary embolism, acute bronchitis, chronic scarring process in the lungs and the possible metastatic site at the left base. 07/28/2016 we were able to obtain disc of old CTs done on her. She had a chest CT about a year ago at [place] and there was only one tiny nodule at the left base laterally. Abdominal CT done in May 2016 shows the same thing. The present area in the bases is new. There are interstitial infiltrates and want irregular lesion of the left base. Considering that she had pneumonia symptoms initially this may be from pneumonia. I discussed the case with Dr. Meyer and with the patient. I would suggest getting a follow-up CT of her chest in 4-6 weeks. Exam (Progress Note) - Constitutional Vitals: Period Temp Pulse Resp BP Sys/Frausto Pulse Ox Last 24 Hr 96.5 F-98.9 F 75-96 16-20 110-122/60-68 92-99 Exam: She is alert oriented vital signs normal. Pupils react to light. Throat is clear. Neck supple no bruits. Chest sounds clear prolonged expiratory phase no active wheezing. Heart normal rate rhythm no murmurs. Abdomen soft no masses. Extremities no clubbing cyanosis edema. Calves nontender. Little change in exam from before. Results - Labs CBC & BMP: 07/26/16 04:00 07/26/16 04:00 Lab Results: I have reviewed the past 24 hour labs Assessment and Plan (1) Pulmonary embolism Status: Acute Assessment and plan: Standard CT showed evidence of pulmonary emboli in the right upper lobe coronary artery. Patient is on Xarelto at present. I reviewed the film and agree that this is consistent with pulmonary embolism. Venous Dopplers of legs were negative. 07/27/2016 agree with long-term treatment with Xarelto. 07/28/2016 plans are for long-term Xarelto. Would treat for at least 6 months. Current Visit: Yes (2) Acute bronchitis Status: Acute Assessment and plan: Patient is having wheezing, bronchospasm. Long-term history of smoking. Needs treatment for acute bronchitis. Could have COPD but it is not known at this point. She smoked for a long time. We will treat her for that. This is likely playing a big part in her hypoxemia 07/27/2016 this appears improved. Taper medications. 07/28/2016 she feels much better and sounds much better. Agree with plans for discharge on oral medications tomorrow Current Visit: Yes (3) Tobacco abuse Status: Acute Assessment and plan: Patient has stopped smoking already. She was not clear on the time but I think it has been a couple of months ago. Current Visit: Yes (4) Left lower lobe lung lesion Status: Acute Assessment and plan: She has had previous CT images done at [place]. We will obtain old CT discs to review and see if this lesion has been there in the past. Could be a focal pneumonia could be metastatic disease could be a scar. 07/27/[address] images from [facility] to compare when they are available. 07/28/2016 has noted this is new since previous CT of May 2016. Needs follow-up to be sure it resolves. May be an unresolved pneumonia. Certainly could be metastatic disease, however she appears to be responding well in other areas to the chemotherapy. This is on the opposite side from the areas of pulmonary emboli in the right upper lobe Current Visit: Yes (5) Breast cancer Status: Acute Assessment and plan: Has widespread metastatic breast cancer including brain metastases. Has had chemotherapy as recently as about 2 weeks ago. Current Visit: No (6) Brain metastases Status: Acute Assessment and plan: This is been treated with radiation 07/27/[address] shows marked improvement in multiple metastatic sites. Current Visit: No
[2016-07-28] MEDS: RIVAROXABAN 15 MG TABLET PO SCH ×2 (09:09→16:38)
[2016-07-28] MEDS: methylPREDNISolone SOD SUC 40 MG/1 ML VIAL IV SCH ×2 (09:09→21:02)
[2016-07-28] MEDS: HYDROcodone/CHLORPHENIRAMINE ER 5 ML UDCUP PO SCH ×2 (09:09→21:02)
--- NOTE | 2016-07-28 09:32 | Oncology Progress Note ---
Oncology Subjective PN Interval history: The patient is afebrile and appears improved. She has been ambulating well. Her cough is nearly resolved. Breath sounds are clear on bilateral posterior auscultation. She is now on room air. No labs are available for review. We will repeat labs tomorrow. We will continue antibiotics today as well as anticoagulation and anticipate discharge tomorrow Exam - Constitutional Vitals: Period Temp Pulse Resp BP Sys/Frausto Pulse Ox Last 24 Hr 96.5 F-98.9 F 75-96 16-20 110-126/60-68 92-99 Results - Labs CBC & BMP: 07/26/16 04:00 07/26/16 04:00
[2016-07-29] MEDS: PIPERACILLIN/TAZOBACTAM 3,375 MG in SODIUM CHLORIDE 0.9% 100 ML IV SCH ×2 (00:42→09:04)
[2016-07-29] MEDS ORDERED: VANCOMYCIN INJ 1,000 MG in SODIUM CHLORIDE 0.9% 250 ML IV SCH (01:00)
[2016-07-29] MEDS: ALBUTEROL/IPRATROPIUM 3 ML NEB RESP TX SCH ×2 (01:52→07:23)
[2016-07-29 05:25] LABS: Albumin 2.6 G/DL (3.4-5.0); Bilirubin,Total 0.7 MG/DL (0.2-1.0); Calcium 8.9 MG/DL (8.5-10.1); Magnesium 2.6 MG/DL (1.8-2.4); Osmolality,Calculated 293.7 MOS/KG (273-304); Potassium 4.1 MMOL/L (3.5-5.1); Total Protein 5.9 G/DL (6.4-8.3)
[2016-07-29 07:24] LABS: Basophils % 0.1 % (0.0-0.8); Hematocrit 32.6 VOL% (35.7-47.0); Hemoglobin 10.2 GM/DL (12.0-16.0); Immature Granulocytes % 2.9 %; Immature Granulocytes Absolute 0.28 #; Lymphocytes # 0.9 10*3/uL (1.4-4.0); Lymphocytes % 9.8 % (21.3-54.2); Mean Corpuscular HGB Conc 31.3 GM/DL (32-36); Mean Corpuscular Hemoglobin 32 PG (27-34); Mean Corpuscular Volume 100.6 FL (87-102); Mean Platelet Volume 9.9 FL (9.6-12.0); Monocytes # 0.4 10*3/uL (0.11-0.8); Monocytes % 4.6 % (1.7-12.7); NRBC # 0.04 10*3/uL; Neutrophils % 82.6 % (38.7-73.9); Platelet Count 403 T/CUMM (130-400); Red Blood Count 3.24 MC/CUMM (3.8-5.5); Red Cell Distribution Width 23.1 % (9.3-17.3); White Blood Count 9.6 T/CUMM (4-12)
[2016-07-29 07:52] LABS: Band Neutrophils 1 % (0-10); Hypochromasia 1+; Lymphocytes 10 % (20-55); Macrocytosis Slight; Ovalocytes Slight; Platelet Estimate Adequate; Segmented Neutrophils 82 % (50-85); Total Cells Counted 100
[2016-07-29 07:53] LABS: Polychromasia Slight
[2016-07-29 08:11] VITALS: BP 158/70
--- NOTE | 2016-07-29 08:47 | Pulmonology Progress Note ---
Pulmonary - PN: Subj Interval history: This 46-year-old lady has breast cancer with metastasis to her brain. She also has pulmonary emboli. She had acute bronchitis with bronchospasm. She is a former smoker. She has a lesion in her left lower lobe. We have gotten some discs in from [facility] on her old CTs but they are not up on the computer where I can review them as yet to see if this left lower lobe lung lesion is new or old. Basically she is feeling better and is less short of breath. Still requiring some oxygen. We will wean oxygen further. We did an echocardiogram and it was okay. Thus her hypoxemia is multifactorial including pulmonary embolism, acute bronchitis, chronic scarring process in the lungs and the possible metastatic site at the left base. 07/28/2016 we were able to obtain disc of old CTs done on her. She had a chest CT about a year ago at [facility] and there was only one tiny nodule at the left base laterally. Abdominal CT done in May 2016 shows the same thing. The present area in the bases is new. There are interstitial infiltrates and want irregular lesion of the left base. Considering that she had pneumonia symptoms initially this may be from pneumonia. I discussed the case with Dr. Meyer and with the patient. I would suggest getting a follow-up CT of her chest in 4-6 weeks. 07/29/2016 patient doing well. Ready for discharge. I would be happy to see her again on a as needed basis. Needs a follow-up chest CT in 4-6 weeks. Call if needed further. Exam (Progress Note) - Constitutional Vitals: Period Temp Pulse Resp BP Sys/Frausto Pulse Ox Last 24 Hr 96.6 F-98.2 F 58-91 16-20 123-166/59-92 90-99 Exam: She is alert oriented vital signs normal. Pupils react to light. Throat is clear. Neck supple no bruits. Chest sounds clear prolonged expiratory phase no active wheezing. Heart normal rate rhythm no murmurs. Abdomen soft no masses. Extremities no clubbing cyanosis edema. Calves nontender. Results - Labs CBC & BMP: 07/29/16 04:00 07/29/16 04:00 Lab Results: I have reviewed the past 24 hour labs Assessment and Plan (1) Pulmonary embolism Status: Acute Assessment and plan: Standard CT showed evidence of pulmonary emboli in the right upper lobe coronary artery. Patient is on Xarelto at present. I reviewed the film and agree that this is consistent with pulmonary embolism. Venous Dopplers of legs were negative. 07/27/2016 agree with long-term treatment with Xarelto. 07/28/2016 plans are for long-term Xarelto. Would treat for at least 6 months. 07/29/2016 needs Xarelto for at least 6 months and probably lifelong. Current Visit: Yes (2) Acute bronchitis Status: Acute Assessment and plan: Patient is having wheezing, bronchospasm. Long-term history of smoking. Needs treatment for acute bronchitis. Could have COPD but it is not known at this point. She smoked for a long time. We will treat her for that. This is likely playing a big part in her hypoxemia 07/27/2016 this appears improved. Taper medications. 07/28/2016 she feels much better and sounds much better. Agree with plans for discharge on oral medications tomorrow 07/29/2016 this is improved. Probably had some bronchopneumonia associated with it. Abnormal CT scan needs follow-up. Current Visit: Yes (3) Tobacco abuse Status: Acute Assessment and plan: Patient has stopped smoking already. She was not clear on the time but I think it has been a couple of months ago. Current Visit: Yes (4) Left lower lobe lung lesion Status: Acute Assessment and plan: She has had previous CT images done at [facility]. We will obtain old CT discs to review and see if this lesion has been there in the past. Could be a focal pneumonia could be metastatic disease could be a scar. 07/27/[address] images from [facility] to compare when they are available. 07/28/2016 has noted this is new since previous CT of May 2016. Needs follow-up to be sure it resolves. May be an unresolved pneumonia. Certainly could be metastatic disease, however she appears to be responding well in other areas to the chemotherapy. This is on the opposite side from the areas of pulmonary emboli in the right upper lobe 07/29/2016 this may well be an unresolved pneumonia but need to follow-up CT in 6 weeks or so. Current Visit: Yes (5) Breast cancer Status: Acute Assessment and plan: Has widespread metastatic breast cancer including brain metastases. Has had chemotherapy as recently as about 2 weeks ago. Current Visit: No (6) Brain metastases Status: Acute Assessment and plan: This is been treated with radiation 07/27/[address] shows marked improvement in multiple metastatic sites. Current Visit: No
[2016-07-29] MEDS: methylPREDNISolone SOD SUC 40 MG/1 ML VIAL IV SCH (09:07)
[2016-07-29] MEDS: HYDROcodone/CHLORPHENIRAMINE ER 5 ML UDCUP PO SCH (09:12)
[2016-07-29] MEDS: RIVAROXABAN 15 MG TABLET PO SCH (09:12)
--- NOTE | 2016-07-29 11:23 | Discharge Summary ---
Hospital Course - Hospital Course Hospital Course: Patient with metastatic HER-2 positive breast cancer who was admitted with fever and hypoxia. She had a recent hospitalization in [place] for pneumonia just a few days before that. A CT scan showed evidence of pulmonary emboli and anticoagulation was initiated. She was seen in consultation by Dr. Thomas with pulmonary service. She is received vancomycin and meropenem intravenous over the last 7 days and has made significant improvement and is now O2 independent. She has acceptable O2 saturations today at 93-95%. Her cough is resolved. Her lungs are now clear to bilateral auscultation and she is ambulatory without assistance. She will be discharged on 7 days of oral Levaquin with oncology follow-up 72 hours from present. Also will be prescribed Xarelto 15 mg twice daily for 3 weeks with instructions to change to once daily 20 mg dosing at that time. An MRI brain showed significant improvement of cerebral metastasis and actual resolution of several of these areas. Specialty Discharge - Follow Up or Referrals Follow up with: Fredy Meyer MD [Physician] - Discharge Plan - Discharge Medications New HYDROcodone/CHLORPHEN ER SUSP [Tussionex] 5 ml PO BID #12 Rivaroxaban [Xarelto] 15 mg PO BID W/MEALS #40 tablet Continue ALPRAZolam [Xanax] 1 - 2 tablet PO TID PRN PRN Reason: Anxiety Promethazine Tab [Phenergan Tab] 25 mg PO Q4H PRN PRN Reason: Nausea Duloxetine HCl [Cymbalta] 60 mg PO BEDTIME ALPRAZolam [Xanax] 1 mg PO BEDTIME PRN #0 tablet PRN Reason: Anxiety Zolpidem Tartrate 10 mg PO BEDTIME PRN PRN Reason: Insomnia - Follow Up or Referral Follow Up: Fredy Meyer MD [Physician] - - Forms/Instructions Exam - Constitutional Vitals: Period Temp Pulse Resp BP Sys/Frausto Pulse Ox Last 24 Hr 96.6 F-98.2 F 58-91 16-20 123-166/59-92 90-99 Discharge Results Labs on day of discharge: Labs from last 24 hours 07/29/16 07/29/16 07/28/16 04:00 04:00 12:31 WBC 9.6 D RBC 3.24 L Hgb 10.2 L Hct 32.6 L MCV 100.6 MCH 32 MCHC 31.3 L RDW 23.1 H Plt Count 403 H D MPV 9.9 Neut % (Auto) 82.6 H Lymph % (Auto) 9.8 L [place] % (Auto) 4.6 Eos % (Auto) 0.0 Baso % (Auto) 0.1 Neut # (Auto) 8.0 H Lymph # (Auto) 0.9 L [place] # (Auto) 0.4 Eos # (Auto) 0.0 Baso # (Auto) 0.0 Total Counted 100 Immature Gran % 2.9 Nucleated RBC % 0.4 Immature Gran # 0.28 Segmented Neutrophils 82 Band Neutrophils 1 Lymphocytes 10 L Monocytes 7 Nucleated RBCs # 0.04 Platelet Estimate Adequate Polychromasia Slight Hypochromasia 1+ Macrocytosis Slight Ovalocytes Slight Morphology Comment Sodium 145 Potassium 4.1 Chloride 109 H Carbon Dioxide 26 Anion Gap 14.1 BUN 19 H Creatinine 1.00 GFR Calculation 75 BUN/Creatinine Ratio 19.00 Glucose 178 H Calculated Osmolality 293.7 Calcium 8.9 Magnesium 2.6 H Total Bilirubin 0.70 AST 46 H ALT 93 H Alkaline Phosphatase 80 Total Protein 5.9 L Albumin 2.6 L Globulin 3.3 Albumin/Globulin Ratio 0.7 L Vancomycin Trough 20.5 H DS: Provider Date of admission: 07/21/16 12:09 Primary care physician: . No PCP Attending physician on admission: Fredy Meyer MD Consults: 07/21/16 14:24 Consult to Pharmacy [CONS] Routine Reason for Pharmacy Consult: Dose/Manage Vancomycin 07/25/16 11:25 Consult to Case Mgmt/Social Srvs [CONS] Routine Reason for Case Mgmt/Social Srvs: Equipment Consult Comment: Need home oxygen 02/2l/nc,sat 87% on room air at rest 07/26/16 08:45 Consult to Physician [CONS] Routine Comment: Dr. Thomas for hypoxia Consulting Provider: Parish Thomas Consulting Provider Notified: Yes When should Consulting Provider be notified: Now Consult to Specialist Group: Pulmonology When should Consulting Provider be notified: Now Person Notified: MAGALI Date Notified: 07/26/16 Time Notified: 09:07 Discharging clinician: Fredy Meyer MD
== END 2016-07-29 12:40 | disposition home or self-care (01) | DRG 175 ==
LOC: N.4E 12:09
PROVIDERS: ADMIT Specialist; ATTEND Specialist